=== PATIENT | female | born 1945 | race Caucasian/White ===

== ENCOUNTER 2020-09-28 09:16 | Outpatient (REF) | payer MEDICARE, SELFPAY ==
--- NOTE | ~2020-09-28 | XR_ITS ---
EXAMINATION: XR PELVIS / LEFT HIP: 3 VIEWS XR BILATERAL KNEES: STANDING AP XR LEFT KNEE: 2 VIEWS CLINICAL INFORMATION: Pain COMPARISON: None XR/XR pelvis 1-2V FINDINGS/IMPRESSION: Pelvis/left hip: No acute fracture or dislocation. Pelvic ring intact. Bilateral total hip arthroplasties in place with single acetabular augmentation screws present. No periprosthetic lucency to suggest loosening, infection or particle disease. Femoral head prostheses are concentrically seated within there respective acetabular cup. Mild bilateral sacroiliac arthrosis. Chain sutures present within the pelvis. Knees: Right total knee arthroplasty. Tibial component is cemented. Components in expected positions. Tricompartmental marginal osteophytes of the left knee, most pronounced along the medial lateral tibiofemoral compartments. Chondrocalcinosis. Trace joint effusion.
--- NOTE | ~2020-09-28 | XR_ITS ---
EXAMINATION: XR PELVIS / LEFT HIP: 3 VIEWS XR BILATERAL KNEES: STANDING AP XR LEFT KNEE: 2 VIEWS CLINICAL INFORMATION: Pain COMPARISON: None XR/XR knee LT 2V FINDINGS/IMPRESSION: Pelvis/left hip: No acute fracture or dislocation. Pelvic ring intact. Bilateral total hip arthroplasties in place with single acetabular augmentation screws present. No periprosthetic lucency to suggest loosening, infection or particle disease. Femoral head prostheses are concentrically seated within there respective acetabular cup. Mild bilateral sacroiliac arthrosis. Chain sutures present within the pelvis. Knees: Right total knee arthroplasty. Tibial component is cemented. Components in expected positions. Tricompartmental marginal osteophytes of the left knee, most pronounced along the medial lateral tibiofemoral compartments. Chondrocalcinosis. Trace joint effusion.
--- NOTE | ~2020-09-28 | XR_ITS ---
EXAMINATION: XR PELVIS / LEFT HIP: 3 VIEWS XR BILATERAL KNEES: STANDING AP XR LEFT KNEE: 2 VIEWS CLINICAL INFORMATION: Pain COMPARISON: None XR/XR knee standing BI FINDINGS/IMPRESSION: Pelvis/left hip: No acute fracture or dislocation. Pelvic ring intact. Bilateral total hip arthroplasties in place with single acetabular augmentation screws present. No periprosthetic lucency to suggest loosening, infection or particle disease. Femoral head prostheses are concentrically seated within there respective acetabular cup. Mild bilateral sacroiliac arthrosis. Chain sutures present within the pelvis. Knees: Right total knee arthroplasty. Tibial component is cemented. Components in expected positions. Tricompartmental marginal osteophytes of the left knee, most pronounced along the medial lateral tibiofemoral compartments. Chondrocalcinosis. Trace joint effusion.
--- NOTE | ~2020-09-28 | XR_ITS ---
EXAMINATION: XR PELVIS / LEFT HIP: 3 VIEWS XR BILATERAL KNEES: STANDING AP XR LEFT KNEE: 2 VIEWS CLINICAL INFORMATION: Pain COMPARISON: None XR/XR hip LT 1V FINDINGS/IMPRESSION: Pelvis/left hip: No acute fracture or dislocation. Pelvic ring intact. Bilateral total hip arthroplasties in place with single acetabular augmentation screws present. No periprosthetic lucency to suggest loosening, infection or particle disease. Femoral head prostheses are concentrically seated within there respective acetabular cup. Mild bilateral sacroiliac arthrosis. Chain sutures present within the pelvis. Knees: Right total knee arthroplasty. Tibial component is cemented. Components in expected positions. Tricompartmental marginal osteophytes of the left knee, most pronounced along the medial lateral tibiofemoral compartments. Chondrocalcinosis. Trace joint effusion.
== END 2020-09-28 09:17 | disposition home or self-care (01) ==
LOC: HO.HOSX 09:16
PROVIDERS: Visit Provider Orthopaedic Surgery
DX: M25.552 Pain in left hip (principal); M17.12 Unilateral primary osteoarthritis, left knee; S76.112A Strain of left quadriceps muscle, fascia and tendon, initial encounter
CPT/HCPCS: 72170; 73501; 73503; 73560; 73562; 73565; 99202

== ENCOUNTER → 2020-11-30 11:06 | Outpatient (BNVA) | payer MEDICARE, SELFPAY | PROVIDERS: PCP Internal Medicine; Visit Provider Orthopaedic Surgery | DX: Z01.812 Encounter for preprocedural laboratory examination (principal); Z01.810 Encounter for preprocedural cardiovascular examination | CPT/HCPCS: 93005 ==

== ENCOUNTER 2020-12-11 11:05 | Outpatient (REF) | payer MEDICARE, SELFPAY ==
--- NOTE | ~2020-12-11 | XR_ITS ---
EXAMINATION: XR SHOULDER, RIGHT CLINICAL INFORMATION: Pain COMPARISON: None TECHNIQUE: 2 views of the right shoulder. FINDINGS: No fracture or dislocation is seen. There is severe arthritis at the glenohumeral joint with joint space narrowing, small osteophyte and increased sclerosis. There is mild arthritis at the acromioclavicular joint. There is soft tissue calcification superior to the greater tuberosity. XR/XR shoulder RT min 2V IMPRESSION: Arthritis, severe at the glenohumeral joint.
--- NOTE | ~2020-12-11 | XR_ITS ---
EXAMINATION: PELVIS AND LEFT HIP X-RAY CLINICAL INFORMATION: Pain COMPARISON: Previous exam September 2020 TECHNIQUE: One view of the pelvis and 2 views of the left hip FINDINGS: There are bilateral hip replacement in satisfactory position. No fracture, dislocation or x-ray evidence of loosening is seen. Bones of the pelvis are unremarkable. There are degenerative changes of the lower lumbar spine. There is evidence of atherosclerotic disease. There are surgical raul in the pelvis. XR/XR pelvis 1-2V IMPRESSION: Satisfactory appearance of bilateral hip replacements.
--- NOTE | ~2020-12-11 | XR_ITS ---
EXAMINATION: PELVIS AND LEFT HIP X-RAY CLINICAL INFORMATION: Pain COMPARISON: Previous exam September 2020 TECHNIQUE: One view of the pelvis and 2 views of the left hip FINDINGS: There are bilateral hip replacement in satisfactory position. No fracture, dislocation or x-ray evidence of loosening is seen. Bones of the pelvis are unremarkable. There are degenerative changes of the lower lumbar spine. There is evidence of atherosclerotic disease. There are surgical raul in the pelvis. XR/XR hip LT min 2V IMPRESSION: Satisfactory appearance of bilateral hip replacements.
== END 2020-12-11 11:06 | disposition home or self-care (01) ==
LOC: HO.HOSX 11:05
PROVIDERS: PCP Internal Medicine; Visit Provider Physician Assistant
DX: M25.552 Pain in left hip (principal); M19.011 Primary osteoarthritis, right shoulder; Z96.643 Presence of artificial hip joint, bilateral
CPT/HCPCS: 20610; 72170; 73030; 73502; 99212; J1100

== ENCOUNTER → 2021-01-01 09:46 | Outpatient (REF) | payer MEDICARE, SELFPAY ==
--- NOTE | ~2021-01-01 | NM_ITS ---
EXAMINATION: THREE PHASE BONE SCAN CLINICAL INFORMATION: Status post left hip replacement 2013, right hip replacement 2009, right knee replacement 2019. Pain left thigh area.. COMPARISON: No previous bone scan is available for comparison. Radiographs of the pelvis, left hip and right shoulder dated 12/11/2020 are available for comparison.. TECHNIQUE: Initial rapid sequence images were obtained over the at and proximal thighs in the anterior and posterior projections during the bolus injection of 20 mCi Tc-99m MDP. Static images of the whole-body with multiple views of the knees, hips and pelvis were then obtained 3 hours post injection. FINDINGS: Initial rapid sequence images show bilaterally symmetrical flow to the hips and proximal thighs with no foci of abnormally increased flow at any site. Blood pool images obtained immediately following the flow study show subtle photopenic defects from bilateral total hip prosthesis but no abnormal blood pool activity avidity is present at any visualized site. The delayed static images of the whole body show: In the head, no significant abnormalities are present. In the thoracic cage and upper extremities, there is mildly increased activity in the right shoulder, most prominently in the glenohumeral articulation. There is minimally increased activity in the sternoclavicular joints bilaterally. In the spine, a mild thoracolumbar scoliosis is present with lumbar convexity to the left. There is minimal heterogeneity in the spine but no prominent foci of abnormally increased activity are present at any site. There is minimally increased activity in the left lateral aspect of the lower cervical spine, likely due to facet arthropathy. In the pelvis, no significant abnormalities are present. In the lower extremities, photopenic defects from bilateral total hip and a right knee prosthesis are noted. There is moderately increased activity adjacent to the distal half of both femoral stems, and this extends more distally on the left. The activity is more intense in the anterior cortex adjacent to the femoral stem with some abnormal activity appears to surround the mid to distal aspects of both femoral stems. There is no abnormal activity adjacent to the proximal aspect of either prostheses other than very minimally increased activity in the greater femoral trochanters bilaterally likely due to an enthesopathy. There is no abnormal activity adjacent to the right knee prosthesis. There is a mild diffuse increase in activity in the left knee slightly more prominently in the patella. There is mildly increased activity in both ankles and a mild diffuse increase in activity is present in the tarsal bones diffusely in both feet. Radiograph of the pelvis and hips dated 12/11/2020 show bilateral total hip prosthesis with femoral stems of equal length. There is some cortical thickening adjacent to the mid right femoral stem that corresponds well to the region of increased activity described above on this bone scan. Some cortical thickening is probably present on the left but this is slightly less prominent than on the right, but also appears to correspond to the region of increased activity on this bone scan. NM/NM bone 3 phase IMPRESSION: 1. There is somewhat prominent activity adjacent to the femoral stem of both total hip prosthesis, and while this may represent ongoing bony remodeling prosthetic loosening is suspected. The pattern is unusual in that there is usually significantly increased activity at the distal tip of the femoral stem or in significant loosening is present and it is possible that this increased activity bilaterally is due to ongoing normal bony remodeling adjacent to the femoral stems. Although infection cannot be entirely ruled out, the absence of any significant increased flow or blood pool activity is evidence against active infection. 2. A well-healed right total knee prosthesis is noted with no abnormalities present to suggest prosthetic loosening, infection, or adjacent fracture. 3. A few additional mild nonspecific abnormalities are noted as described above and these are all likely arthritic or traumatic in etiology. The most severe of these is in the glenohumeral articulation of the right shoulder. None of these abnormalities is strongly suspicious for metastatic disease..
== END ==
LOC: HO.NUCMED 09:46
PROVIDERS: PCP Internal Medicine; Visit Provider Physician Assistant
DX: M79.652 Pain in left thigh (principal); Z96.643 Presence of artificial hip joint, bilateral; Z96.651 Presence of right artificial knee joint
CPT/HCPCS: 78315; A9503

== ENCOUNTER → 2021-01-22 13:12 | Outpatient (BNVA) | payer MEDICARE, SELFPAY | PROVIDERS: PCP Internal Medicine; Visit Provider Orthopaedic Surgery | DX: M25.559 Pain in unspecified hip (principal); Z96.649 Presence of unspecified artificial hip joint | CPT/HCPCS: 99212 ==

== ENCOUNTER 2021-03-26 10:31 | Outpatient (REF) | payer MEDICARE, SELFPAY ==
--- NOTE | ~2021-03-26 | XR_ITS ---
EXAMINATION: XR PELVIS XR HIP, LEFT CLINICAL INFORMATION: Pelvis and left hip radiograph from 12/11/2020 COMPARISON: None TECHNIQUE: 2 views of the pelvis and one view of the left hip FINDINGS: No acute visible fracture or dislocation. Status post bilateral hip arthroplasty. Orthopedic hardware is grossly intact. Degenerative changes of the lower lumbar spine and lumbosacral spine. Degenerative changes along the pubic symphysis. Surgical material noted in the lower abdomen and pelvis. Joint spaces and alignment are otherwise maintained. Soft tissues are unremarkable. Pelvic phleboliths are noted. Atherosclerotic calcifications are visualized. XR/XR pelvis 1-2V IMPRESSION: 1. No fracture or dislocation. 2. Status post bilateral hip arthroplasty with intact orthopedic hardware.
--- NOTE | ~2021-03-26 | XR_ITS ---
EXAMINATION: XR PELVIS XR HIP, LEFT CLINICAL INFORMATION: Pelvis and left hip radiograph from 12/11/2020 COMPARISON: None TECHNIQUE: 2 views of the pelvis and one view of the left hip FINDINGS: No acute visible fracture or dislocation. Status post bilateral hip arthroplasty. Orthopedic hardware is grossly intact. Degenerative changes of the lower lumbar spine and lumbosacral spine. Degenerative changes along the pubic symphysis. Surgical material noted in the lower abdomen and pelvis. Joint spaces and alignment are otherwise maintained. Soft tissues are unremarkable. Pelvic phleboliths are noted. Atherosclerotic calcifications are visualized. XR/XR hip LT 1V IMPRESSION: 1. No fracture or dislocation. 2. Status post bilateral hip arthroplasty with intact orthopedic hardware.
== END 2021-03-26 10:32 | disposition home or self-care (01) ==
LOC: HO.HOSX 10:31
PROVIDERS: PCP Internal Medicine; Visit Provider Orthopaedic Surgery
DX: M25.552 Pain in left hip (principal); M79.652 Pain in left thigh; M19.011 Primary osteoarthritis, right shoulder; I10 Essential (primary) hypertension; E78.00 Pure hypercholesterolemia, unspecified; E03.9 Hypothyroidism, unspecified; Z96.643 Presence of artificial hip joint, bilateral; Z88.8 Allergy status to other drugs, medicaments and biological substances
CPT/HCPCS: 72170; 73501; 99212

== ENCOUNTER 2021-04-02 10:41 | Outpatient (REF) | payer MEDICARE, SELFPAY ==
[2021-04-02 12:24] LABS: C Reactive Protein 0.06 mg/dL (< or = 0.50)
[2021-04-02 12:27] LABS: Erythrocyte Sedimentation Rate 8 MM/HR (0-20)
== END 2021-04-02 10:42 | disposition home or self-care (01) ==
LOC: HO.LAB 10:41
PROVIDERS: PCP Internal Medicine; Visit Provider Orthopaedic Surgery
DX: M25.559 Pain in unspecified hip (principal); Z96.649 Presence of unspecified artificial hip joint
CPT/HCPCS: 36415; 85652; 86140

== ENCOUNTER → 2021-04-20 10:34 | Outpatient (BNVA) | payer MEDICARE, SELFPAY | PROVIDERS: PCP Internal Medicine; Visit Provider Orthopaedic Surgery | DX: M81.0 Age-related osteoporosis without current pathological fracture (principal); M17.12 Unilateral primary osteoarthritis, left knee; M19.011 Primary osteoarthritis, right shoulder | CPT/HCPCS: 20610; 99212; J1100 ==

== ENCOUNTER → 2021-07-19 11:20 | Outpatient (BNVA) | payer MEDICARE, SELFPAY | PROVIDERS: PCP Internal Medicine; Visit Provider Orthopaedic Surgery | DX: M19.011 Primary osteoarthritis, right shoulder (principal); M17.12 Unilateral primary osteoarthritis, left knee; M75.41 Impingement syndrome of right shoulder; M25.559 Pain in unspecified hip; Z96.649 Presence of unspecified artificial hip joint | CPT/HCPCS: 20610; 99212; J1100 ==

== ENCOUNTER → 2021-10-19 11:00 | Outpatient (BNVA) | payer MEDICARE, SELFPAY | PROVIDERS: PCP Internal Medicine; Visit Provider Orthopaedic Surgery | DX: M19.011 Primary osteoarthritis, right shoulder (principal); M17.12 Unilateral primary osteoarthritis, left knee; Z96.649 Presence of unspecified artificial hip joint | CPT/HCPCS: 99212 ==

== ENCOUNTER → 2021-11-29 10:44 | Outpatient (BNVA) | payer MEDICARE, OTHER, MEDICAID, SELFPAY | PROVIDERS: PCP Internal Medicine; Visit Provider Orthopaedic Surgery | DX: M19.011 Primary osteoarthritis, right shoulder (principal); M17.12 Unilateral primary osteoarthritis, left knee | CPT/HCPCS: 20610; 99212; J1100 ==

== ENCOUNTER → 2022-03-07 08:46 | Outpatient (BNVA) | payer MEDICARE, MEDICAID, SELFPAY | PROVIDERS: PCP Internal Medicine; Visit Provider Orthopaedic Surgery | DX: M17.12 Unilateral primary osteoarthritis, left knee (principal); M25.559 Pain in unspecified hip; Z96.649 Presence of unspecified artificial hip joint | CPT/HCPCS: 20610; 99212; J1100 ==

== ENCOUNTER → 2022-06-06 12:01 | Outpatient (BNVA) | payer MEDICARE, MEDICAID, SELFPAY | PROVIDERS: PCP Internal Medicine; Visit Provider Orthopaedic Surgery | DX: M19.011 Primary osteoarthritis, right shoulder (principal); M17.12 Unilateral primary osteoarthritis, left knee; M81.0 Age-related osteoporosis without current pathological fracture; Z96.643 Presence of artificial hip joint, bilateral; Z79.899 Other long term (current) drug therapy | CPT/HCPCS: 20610; 99212; J1100 ==

== ENCOUNTER → 2022-09-02 12:16 | Outpatient (BNVA) | payer MEDICARE, MEDICAID, SELFPAY | PROVIDERS: PCP Internal Medicine; Visit Provider Orthopaedic Surgery | DX: M19.011 Primary osteoarthritis, right shoulder (principal); M17.12 Unilateral primary osteoarthritis, left knee | CPT/HCPCS: 20610; 99212; J1100 ==

== ENCOUNTER 2022-12-02 11:56 | Outpatient (AMB) | payer MEDICARE, MEDICAID, SELFPAY ==
--- NOTE | 2022-12-02 12:03 | A.OFFVIS_ITS ---
Intake Vital Signs 12/02/22 12:15 Height 4 ft 10 in Weight 103 lb BMI 21.5 Intake Visit Reasons: OV- Left Knee OA - last inj 09/02/22 Intake Note: Cristal is a 77 year old right hand dominant female who presents today for a follow up of her left knee and right shoulder. Last injection in left knee done and right shoulder from 06/06/22. States shoulder lasted about 2 months and 1-2 weeks for her knees. States she would like to discuss repeat of injections today. Allergies ibuprofen [From Motrin] Allergy (Intermediate, Verified 12/02/22 12:11) Hives HPI OV- Left Knee OA - last inj 09/02/22 HPI Details Cristal is a 77 year old woman with left knee OA & right shoulder OA. She has a hx of good relief from steroid injections. Her knee and shoulder were both injected on 06/06/22, with good relief. She would like to repeat these injections today. She says her shoulder injection gave her relief for several months, but her knee injection helped only for ~2 weeks. She says she continues to have some pain in her leg and a newer pain in her hip, which she thinks is related. [facility] Medical History COVID-19 vaccine series completed Elevated cholesterol Hypertension Hypothyroid Surgical History H/O: hysterectomy S/P total knee replacement Status post total hip replacement, left Status post total hip replacement, right Social History Current occupational status: retired Current occupation: right handed Review of Systems Const All systems reviewed & are unremarkable except as noted in HPI and below Physical Exam Vital Signs: BMI result Body Mass Index 21.5 Const General: no acute distress, alert and awake Orientation/consciousness: patient oriented x3 HEENT Head: Yes normocephalic and Yes atraumatic Eyes EOM: EOMs intact bilaterally Resp Effort & Inspection: normal respiratory effort and able to speak in complete sentences Cardio Jugular venous distension: no JVD Skin General skin exam: turgor normal Rashes: no rashes Neuro General: patient oriented x3 Psych Appearance: grossly normal Affect: normal affect Attitude: cooperative Office Procedures Joint Injection/Drain Joint Injection/Drain Details: Injected 1 mL of Decadron and 3 mL 1% lidocaine and 3 mL of 0.25% Marcaine. Site was prepped using aseptic technique. Patient tolerated the procedure well. Primary Site: left knee Secondary Site: right shoulder Approach Used: anterolateral Coding 64912 - Large joint 32626 - Glenohumeral/Tronchanteric Bursa/Intraarticular Procedure code (CPT) selection complete Results Reviewed Results Reviewed: 12/02/22 12:07 Lidocaine HCl 2 % MPF [Xylocaine 2 % MPF] 5 ml .ROUTE .STK-MED ONE 12/02/22 12:08 BUPivacaine MPF 0.25 % [Sensorcaine-MPF 0.25% 10 ML] 10 ml .ROUTE .STK-MED ONE dexAMETHasone sod phosphate [Decadron] 4 mg .ROUTE .STK-MED ONE Assessment & Plan Assessment & Plan (1) Primary osteoarthritis of left knee: Code(s): M17.12 - Unilateral primary osteoarthritis, left knee Plan: This is a 77 year old woman with left knee OA. Her last injection was 08/2622 which offered good, but short-term, relief. She is able to ambulate long distances without discomfort and is comfortable managing her pain with Tylenol. I am hesitant to suggest a TKA given her symptoms. I injected her left knee today, which she tolerated well. She can follow up prn. (2) Degenerative arthritis of right shoulder region: Code(s): M19.011 - Primary osteoarthritis, right shoulder Plan: Right shoulder OA. Her last injection was 09/02/22 which offered her good relief. She has some pain with certain shoulder motions, which worsens at night. I injected her right shoulder today, which she tolerated well. Plan Scribed for Wilmer Whiting MD by Zach Alvarenga, electromedical equipment repairer, on 12/02/22 at 12:20 PM, EST. Coding Level of Care Code Est Pt Level 3 (80509) Diagnoses Primary osteoarthritis of left knee M17.12 Degenerative arthritis of right shoulder region M19.011 CPT Codes Coding - Large joint: 49327 - Large joint ([id number]) Coding - Joint 7: 38160 - Glenohumeral/Tronchanteric Bursa/Intraarticular ([id number])
[2022-12-02 12:15] VITALS: BMI 21.5
== END 2022-12-02 12:52 | disposition home or self-care (01) ==
PROVIDERS: PCP Internal Medicine; Visit Provider Orthopaedic Surgery
DX: M17.12 Unilateral primary osteoarthritis, left knee (principal); M19.011 Primary osteoarthritis, right shoulder
CPT/HCPCS: 20610; 99213

== ENCOUNTER → 2022-12-02 11:56 | Outpatient (BNVA) | payer MEDICARE, MEDICAID, SELFPAY | PROVIDERS: PCP Internal Medicine; Visit Provider Orthopaedic Surgery | DX: M17.12 Unilateral primary osteoarthritis, left knee (principal); M19.011 Primary osteoarthritis, right shoulder | CPT/HCPCS: 20610; 99212; J1100 ==

== ENCOUNTER 2023-02-28 12:09 | Outpatient (AMB) | payer MEDICARE, MEDICAID, SELFPAY ==
--- NOTE | 2023-02-28 12:11 | A.OFFVIS_ITS ---
Intake Intake Visit Reasons: OV- Left Knee OA - last inj 12/02/22. Intake Note: Cristal is a 78 year old female who presents today for a follow up of her left knee OA. Patient reports that this injection was helpful, she would like to have the left knee and left shoulder injected today Allergies ibuprofen [From Motrin] Allergy (Intermediate, Verified 12/02/22 12:11) Hives HPI OV- Left Knee OA - last inj 12/02/22. HPI Details Cristal comes in complaining of left knee and right shoulder pain. SHe has been getting injections which have helped her. She reports continued pain. [facility] Medical History COVID-19 vaccine series completed Elevated cholesterol Hypertension Hypothyroid Surgical History H/O: hysterectomy S/P total knee replacement Status post total hip replacement, left Status post total hip replacement, right Social History Current occupational status: retired Current occupation: right handed Physical Exam Extrem Other: Skin c/d/i No effusion left knee + H/N right shoudler Office Procedures Joint Injection/Drain Joint Injection/Drain Details: Injected 1 mL of Decadron and 3 mL 1% lidocaine and 3 mL of 0.25% Marcaine. Site was prepped using aseptic technique. Patient tolerated the procedure well. Primary Site: left shoulder Secondary Site: right knee Approach Used: other Coding - Large joint - Glenohumeral/Tronchanteric Bursa/Intraarticular Procedure code (CPT) selection complete Assessment & Plan Assessment & Plan (1) Internal impingement of right shoulder: Code(s): M75.41 - Impingement syndrome of right shoulder Plan: Injected right shoulder (2) Primary osteoarthritis of left knee: Code(s): M17.12 - Unilateral primary osteoarthritis, left knee Plan Injected left knee Coding Level of Care Code Est Pt Level 3 (82257) Diagnoses Internal impingement of right shoulder M75.41 Primary osteoarthritis of left knee M17.12 CPT Codes Coding - 99694 Large joint: 15878 - Large joint ([id number]) Coding - Joint 7: - Glenohumeral/Tronchanteric Bursa/Intraarticular ([id number])
== END 2023-02-28 12:39 | disposition home or self-care (01) ==
PROVIDERS: PCP Internal Medicine; Visit Provider Orthopaedic Surgery
DX: M75.41 Impingement syndrome of right shoulder (principal); M17.12 Unilateral primary osteoarthritis, left knee
CPT/HCPCS: 20610; 99213

== ENCOUNTER → 2023-02-28 12:09 | Outpatient (BNVA) | payer MEDICARE, MEDICAID, SELFPAY | PROVIDERS: PCP Internal Medicine; Visit Provider Orthopaedic Surgery | DX: M75.41 Impingement syndrome of right shoulder (principal); M17.12 Unilateral primary osteoarthritis, left knee | CPT/HCPCS: 20610; 99212; J0665; J1100 ==

== ENCOUNTER 2023-05-30 09:02 | Outpatient (AMB) | payer MEDICARE, MEDICAID, SELFPAY ==
[2023-05-30 09:18] VITALS: BMI 21.5
--- NOTE | 2023-05-30 09:18 | MHC.OFFVIS ---
Intake Vital Signs 05/30/23 09:18 Height 4 ft 10 in Weight 103 lb BMI 21.5 Intake Visit Reasons: OV-Left Knee OA - last inj 02/28/23 Intake Note: Cristal is a 78 year old female who presents today for a follow up of her left knee OA. Last injections were administered in the Right Shoulder and Left Knee 02/28/23. She explains that the last injections were helpful and she would like to repeat injections today Allergies ibuprofen [From Motrin] Allergy (Intermediate, Verified 12/02/22 12:11) Hives HPI OV-Left Knee OA - last inj 02/28/23 HPI Details Cristal is a 78 year old female who presents today for a follow up of her left knee OA. Last injections were administered in the Right Shoulder and Left Knee 02/28/23. She explains that the last injections were helpful and she would like to repeat injections today [facility] Medical History COVID-19 vaccine series completed Hypothyroid Elevated cholesterol Hypertension Surgical History S/P total knee replacement H/O: hysterectomy Status post total hip replacement, left Status post total hip replacement, right Social History Current occupational status: retired Current occupation: right handed Physical Exam Vital Signs: BMI result Body Mass Index 21.5 Extrem Other: Left knee medial and lateral joint line mild TTP Right shoulder with + Danielle and Neer but able to abduct comfortably. Office Procedures Joint Injection/Drain Joint Injection/Drain Details: Injected 1 mL of Decadron and 3 mL 1% lidocaine and 3 mL of 0.25% Marcaine. Site was prepped using aseptic technique. Patient tolerated the procedure well. Primary Site: right shoulder Secondary Site: left knee Approach Used: anterolateral Coding - Large joint - Glenohumeral/Tronchanteric Bursa/Intraarticular Procedure code (CPT) selection complete Assessment & Plan Assessment & Plan (1) Internal impingement of right shoulder: Code(s): M75.41 - Impingement syndrome of right shoulder Plan: Right shoulder injected today. (2) Primary osteoarthritis of left knee: Code(s): M17.12 - Unilateral primary osteoarthritis, left knee Plan: Left knee injected today Coding Level of Care Code Est Pt Level 3 (64129) Diagnoses Internal impingement of right shoulder M75.41 Primary osteoarthritis of left knee M17.12 CPT Codes Coding - 25845 Large joint: 96449 - Large joint ([id number]) Coding - Joint 7: 52878 - Glenohumeral/Tronchanteric Bursa/Intraarticular ([id number])
== END 2023-05-30 09:38 | disposition home or self-care (01) ==
PROVIDERS: PCP Internal Medicine; Visit Provider Orthopaedic Surgery
DX: M75.41 Impingement syndrome of right shoulder (principal); M17.12 Unilateral primary osteoarthritis, left knee
CPT/HCPCS: 20610; 99213

== ENCOUNTER → 2023-05-30 09:02 | Outpatient (BNVA) | payer MEDICARE, OTHER, SELFPAY | PROVIDERS: PCP Internal Medicine; Visit Provider Orthopaedic Surgery | DX: M17.12 Unilateral primary osteoarthritis, left knee (principal); M75.41 Impingement syndrome of right shoulder | CPT/HCPCS: 20610; 99212; J0665; J1100 ==

== ENCOUNTER 2023-09-01 12:51 | Outpatient (AMB) | payer MEDICARE, MEDICAID, SELFPAY ==
[2023-09-01 12:56] VITALS: BMI 20.9
--- NOTE | 2023-09-01 12:56 | A.OFFVIS_ITS ---
Vital Signs 09/01/23 12:56 Height 4 ft 10 in Weight 100 lb BMI 20.9 Intake Visit Reasons: OV-Left Knee OA - last inj 05/30/23 Intake Note: Cristal, 78 yr old female, presents today to get injections in the LT knee and the RT shoulder. Allergies ibuprofen [From Motrin] Allergy (Intermediate, Verified 09/01/23 12:57) Hives HPI HPI OV-Left Knee OA - last inj 05/30/23: Details: Cristal, 78 yr old female, presents today to get injections in the LT knee and the RT shoulder. She has been here with these complints in the past. Her left knee, she states, is better than it has been but still painful. Her left thigh pain also ocntinues to bother her. She has right shoulder pain with overhead activity. Injections have helped her in the past. [facility] Medical History COVID-19 vaccine series completed Hypothyroid Elevated cholesterol Hypertension Surgical History S/P total knee replacement H/O: hysterectomy Status post total hip replacement, left Status post total hip replacement, right Social History Current occupational status: retired Current occupation: right handed Physical Exam Vital Signs: BMI result Body Mass Index 20.9 Extrem Other: Left knee medial and lateral joint line mild TTP Right shoulder with + Danielle and Neer but able to abduct comfortably. Office Procedures Joint Injection/Drain Joint Injection/Drain Details: Injected 1 mL of Decadron and 3 mL 1% lidocaine and 3 mL of 0.25% Marcaine. Site was prepped using aseptic technique. Patient tolerated the procedure well. Primary Site: right shoulder Secondary Site: left knee Coding - Large joint 56916 - Glenohumeral/Tronchanteric Bursa/Intraarticular Procedure code (CPT) selection complete Assessment & Plan Assessment & Plan (1) Primary osteoarthritis of left knee: Code(s): M17.12 - Unilateral primary osteoarthritis, left knee Category: Medical Plan: I injected her left knee today. She states he is helpful. Her left knee does bother her but she states it is tolerable. Primary lower extremity complaint is her left thigh pain. I do not feel confident that this would improve with arthroplasty. She can follow up as needed for her left knee. (2) Degenerative arthritis of right shoulder region: Code(s): M19.011 - Primary osteoarthritis, right shoulder Category: Medical Plan: Cristal has right shoulder osteoarthritis but subacromial injections seemed to help her. I injected her subacromial space. If that has not sufficiently helpful she can return to see me but she has good motion and it seems that when she over uses her right shoulder it bothers her more. Coding Level of Care Code Est Pt Level 3 (72792) Diagnoses Primary osteoarthritis of left knee M17.12 Degenerative arthritis of right shoulder region M19.011 CPT Codes Coding - 97186 Large joint: 82507 - Large joint ([id number]) Coding - Joint 7: 71549 - Glenohumeral/Tronchanteric Bursa/Intraarticular ([id number])
== END 2023-09-01 13:45 | disposition home or self-care (01) ==
LOC: HO.HOS 12:51
PROVIDERS: PCP Internal Medicine; Visit Provider Orthopaedic Surgery
DX: M17.12 Unilateral primary osteoarthritis, left knee (principal); M19.011 Primary osteoarthritis, right shoulder
CPT/HCPCS: 20610; 99213

== ENCOUNTER → 2023-09-01 12:51 | Outpatient (BNVA) | payer MEDICARE, MEDICAID, SELFPAY | PROVIDERS: PCP Internal Medicine; Visit Provider Orthopaedic Surgery | DX: M17.12 Unilateral primary osteoarthritis, left knee (principal); M19.011 Primary osteoarthritis, right shoulder | CPT/HCPCS: 20610; 99212; J0665; J1100 ==

== ENCOUNTER 2023-12-04 09:49 | Outpatient (AMB) | payer MEDICARE, MEDICAID, SELFPAY ==
--- NOTE | 2023-12-04 09:53 | A.OFFVIS_ITS ---
Vital Signs 12/04/23 09:59 Height 4 ft 10 in Weight 100 lb BMI 20.9 Intake Visit Reasons: Inj-LT knee and the RT shoulder-last inj. 09/01/23 Intake Note: Cristal is a 78 year old female who presents today for a follow up of her Left Knee and Right Shoulder OA. She was last seen on 09/01/23 where the left shoulder an right shoulder were injected. Patient reports that the last injection was helpful for the left knee but the right shoulder was only helpful for about 2 weeks Allergies ibuprofen [From Motrin] Allergy (Intermediate, Verified 09/01/23 12:57) Hives HPI HPI Inj-LT knee and the RT shoulder-last inj. 09/01/23: Details: Cristal is a 78 year old female who presents today for a follow up of her Left Knee and Right Shoulder OA. She was last seen on 09/01/23 where the left shoulder an right shoulder were injected. Patient reports that the last injection was helpful for the left knee but the right shoulder was only helpful for about 3 weeks. She states she has difficult time bathing and often has to stop her house cleaning activities because of pain. Her knee has been more tolerable as of late. [facility] Medical History COVID-19 vaccine series completed Hypothyroid Elevated cholesterol Hypertension Surgical History S/P total knee replacement H/O: hysterectomy Status post total hip replacement, left Status post total hip replacement, right Social History Current occupational status: retired Current occupation: right handed Physical Exam Vital Signs: BMI result Body Mass Index 20.9 Extrem Other: Left knee medial and lateral joint line mild TTP Right shoulder with + Danielle and Neer but able to abduct comfortably. Office Procedures Joint Injection/Aspiration Joint Injection/Aspiration Details: Injected 1 mL of Decadron and 3 mL 1% lidocaine and 3 mL of 0.25% Marcaine. Site was prepped using aseptic technique. Patient tolerated the procedure well. Primary Site: right shoulder Secondary Site: left knee Coding - Large joint - Glenohumeral/Tronchanteric Bursa/Intraarticular Procedure code (CPT) selection complete Assessment & Plan Assessment & Plan (1) Degenerative arthritis of right shoulder region: Code(s): M19.011 - Primary osteoarthritis, right shoulder Category: Medical Plan: This is a 78-year-old woman with osteoarthritis of the right shoulder. She is very active and healthy and I injected her right shoulder. We discussed activity modification which she may or may not do as she is pretty intent upon her daily activities. (2) Primary osteoarthritis of left knee: Code(s): M17.12 - Unilateral primary osteoarthritis, left knee Category: Medical Plan: I injected her left knee today. Her left knee is actually doing well. She has wanted surgery in the past but we are trying to avoid that. Coding Level of Care Code Est Pt Level 3 (89529) Complex EM visit Add On G2211 Diagnoses Degenerative arthritis of right shoulder region M19.011 Primary osteoarthritis of left knee M17.12 CPT Codes Coding - 54477 Large joint: 43222 - Large joint ([id number]) Coding - Joint 7: 03613 - Glenohumeral/Tronchanteric Bursa/Intraarticular ([id number])
[2023-12-04 09:59] VITALS: BMI 20.9
== END 2023-12-04 10:20 | disposition home or self-care (01) ==
PROVIDERS: PCP Internal Medicine; Visit Provider Orthopaedic Surgery
DX: M19.011 Primary osteoarthritis, right shoulder (principal); M17.12 Unilateral primary osteoarthritis, left knee
CPT/HCPCS: 20610; 99213

== ENCOUNTER → 2023-12-04 09:49 | Outpatient (BNVA) | payer MEDICARE, MEDICAID, SELFPAY | PROVIDERS: PCP Internal Medicine; Visit Provider Orthopaedic Surgery | DX: M17.12 Unilateral primary osteoarthritis, left knee (principal); M19.011 Primary osteoarthritis, right shoulder | CPT/HCPCS: 20610; 99212; J0665; J1100 ==

== ENCOUNTER 2024-03-15 13:13 | Outpatient (AMB) | payer MEDICARE, MEDICAID, SELFPAY ==
--- NOTE | 2024-03-15 13:16 | A.OFFVIS_ITS ---
Intake Visit Reasons: Inj-LT knee and the RT shoulder-last inj. 12/04/23 Intake Note: Cristal is an 79 year old female who presents today for an injection for the Left Knee and the Right shoulder. Patient reports that she received injections on 12/04/23 on the left knee and right shoulder which were helpful for about 2.5 months and she would like to repeat injections today. Allergies ibuprofen [From Motrin] Allergy (Intermediate, Verified 09/01/23 12:57) Hives HPI HPI Inj-LT knee and the RT shoulder-last inj. 12/04/23: Details: Cristal is an 79 year old female who presents today for an injection for the Left Knee and the Right shoulder. Patient reports that she received injections on 12/04/23 on the left knee and right shoulder which were helpful for about 2.5 months and she would like to repeat injections today. [facility] Medical History COVID-19 vaccine series completed Hypothyroid Elevated cholesterol Hypertension Surgical History S/P total knee replacement H/O: hysterectomy Status post total hip replacement, left Status post total hip replacement, right Social History Current occupational status: retired Current occupation: right handed Physical Exam Extrem Other: Left knee medial and lateral joint line mild TTP Right shoulder with + Danielle and Neer but able to abduct comfortably. Office Procedures Joint Inj/Aspir; Non-Pain Clin Joint Injection/Drain Details: Injected 1 mL of Decadron and 3 mL 1% lidocaine and 3 mL of 0.25% Marcaine. Site was prepped using aseptic technique. Patient tolerated the procedure well. Shoulders, Hips, Knees, Shoulder Injection Large joint : Right Shoulder Knee Large Joint Injection 42626: Left Knee Coding Procedure code (CPT) selection complete Assessment & Plan Assessment & Plan (1) Internal impingement of right shoulder: Code(s): M75.41 - Impingement syndrome of right shoulder Category: Medical Plan: Repeat injection. (2) Primary osteoarthritis of left knee: Code(s): M17.12 - Unilateral primary osteoarthritis, left knee Category: Medical Plan: Repeat injection. Coding Level of Care Code Est Pt Level 3 (30544) Diagnoses Internal impingement of right shoulder M75.41 Primary osteoarthritis of left knee M17.12 CPT Codes Shoulders, Hips, Knees, - Shoulder Injection Large joint : Right Shoulder ([id number]) Shoulders, Hips, Knees, - Knee Large Joint Injection : Left Knee ([id number])
== END 2024-03-15 13:55 | disposition home or self-care (01) ==
PROVIDERS: PCP Internal Medicine; Visit Provider Orthopaedic Surgery
DX: M75.41 Impingement syndrome of right shoulder (principal); M17.12 Unilateral primary osteoarthritis, left knee
CPT/HCPCS: 20610; 99213

== ENCOUNTER 2024-06-14 11:59 | Outpatient (AMB) | payer MEDICARE, MEDICAID, SELFPAY ==
--- NOTE | 2024-06-14 12:06 | A.OFFVIS_ITS ---
Intake Visit Reasons: INJ LT knee and the RT shoulder-last inj 03/15/24 Intake Note: Cristal is an 79 year old female who presents today for an injection for the Left Knee and the Right shoulder. Patient reports that she received injections on 03/15/24 which were helpful and she would like to repeat them today Allergies ibuprofen [From Motrin] Allergy (Intermediate, Verified 09/01/23 12:57) Hives HPI HPI INJ LT knee and the RT shoulder-last inj 03/15/24: Details: And/or is 79-year-old woman who gets injections into her left knee and her right shoulder semi periodically. She states these are helpful for her. Her right shoulder bothers her at night in her left knee continues to bother her intermittently but mostly with activity. [facility] Medical History COVID-19 vaccine series completed Hypothyroid Elevated cholesterol Hypertension Surgical History S/P total knee replacement H/O: hysterectomy Status post total hip replacement, left Status post total hip replacement, right Social History Current occupational status: retired Current occupation: right handed Physical Exam Extrem Other: Left knee medial and lateral joint line mild TTP Right shoulder with + Danielle and Neer but able to abduct comfortably. Office Procedures Joint Inj/Aspir; Non-Pain Clin Joint Injection/Drain Details: Injected 1 mL of Decadron and 3 mL 1% lidocaine and 3 mL of 0.25% Marcaine. Site was prepped using aseptic technique. Patient tolerated the procedure well. Shoulders, Hips, Knees, Shoulder Injection Large joint : Right Shoulder Knee Large Joint Injection 72661: Left Knee Coding Procedure code (CPT) selection complete Assessment & Plan Assessment & Plan (1) Internal impingement of right shoulder: Code(s): M75.41 - Impingement syndrome of right shoulder Category: Medical Plan: I injected her right shoulder. Continue to maintain proper shoulder mechanics and continue activity as tolerated. (2) Primary osteoarthritis of left knee: Code(s): M17.12 - Unilateral primary osteoarthritis, left knee Category: Medical Plan: I injected her left knee. Continue range of motion and activity as tolerated. Coding Level of Care Code Est Pt Level 3 (91000) Complex EM visit Add On G2211 Diagnoses Internal impingement of right shoulder M75.41 Primary osteoarthritis of left knee M17.12 CPT Codes Shoulders, Hips, Knees, - Shoulder Injection Large joint 31794: Right Shoulder ([id number]) Shoulders, Hips, Knees, - Knee Large Joint Injection : Left Knee ([id number])
--- OUTSIDE RECORDS SUMMARY | 2024-06-14 14:27 | XMS_ITS | Referral Summary ---
Author Organization [facility] Address [address] [place] [address] Care Team Providers Care Covering Machine Tender Name Role Phone Hay Noguera Primary Care Provider [phone] Allergies Active Allergy Reactions Criticality Noted Date Comments Nsaids (Non-Steroidal Anti-I nflammatory Drug) Hives 02/27/2010 Medications acetaminophen (TYLENOL) 325 mg tablet Take 650 mg by mouth 4 times a day. Active amLODIPine (NORVASC) 10 mg tablet 02/05/2021 Active clotrimazole-bet amethasone (LOTRISONE) cream 07/05/2020 Active levothyroxine (SYNTHROID, LEVOTHROID) 75 mcg tablet 02/15/2021 Active lovastatin (MEVACOR) 20 mg tablet 02/11/2021 Active Social History Tobacco Use Types Packs/Day Years Used Date Smoking Tobacco: Never Smokeless Tobacco: Never Alcohol Use Standard Drinks/Week Comments Not Currently 0 (1 standard drink = 0.6 oz pure alcohol) occ. glass of wine with dinner Comments Unknown Sex and Gender Information Value Date Recorded Sex Assigned at Not on file Legal Sex Female 12:27 PM EST Gender Identity Not on file Sexual Orientation Not on file Last Filed Vital Signs Vital Sign Reading Time Taken Comments Blood Pressure 151/81 04/03/2021 1:31 PM EST Pulse 103 04/03/2021 1:31 PM EST Temperature - - Respiratory Rate - - Oxygen Saturation - - Inhaled Oxygen Concentration - - Weight 48.1 kg (106 lb) 04/03/2021 1:31 PM EST Height 121.9 cm (4') 04/03/2021 1:31 PM EST Body Mass Index 32.35 04/03/2021 1:31 PM EST Plan of Treatment Not on file Insurance [facility] [facility] Care Teams Covering Machine Tender Relationship Specialty Start Date End Date Hay Noguera PCP - General Internal Medicine 03/29/21
--- OUTSIDE RECORDS SUMMARY | 2024-06-14 14:27 | XMS_ITS ---
Author Name [facility] Organization Unknown Care Team Organization Name Specialty Phone Email Start Date End [facility]
--- OUTSIDE RECORDS SUMMARY | 2024-06-14 14:27 | XMS_ITS | Clinical Summary ---
Author Organization [facility] Address [address] [place] [address] Care Team Providers Care [address] Justice Name Role Phone Unavailable Primary Care Provider Unavailabl e Social History Tobacco Use Types Packs/Day Years Used Date Smoking Tobacco: Never Assessed Sex and Gender Information Value Date Recorded Sex Assigned at Not on file Gender Identity Not on file Sexual Orientation Not on file Plan of Treatment Health Maintenance Due Date Last Done Comments DTaP/Tdap/Td Vaccines (1 - Tdap) 01/14/1963 Pneumococcal Vaccines 50+ (1 of 1 - PCV) 01/14/1994 Zoster (Shingles) Vaccine (1 of 2) 01/14/1994 RSV Vaccine 60 years and old er and Patients (1 - 1-dose 75+ series) 01/14/2019 COVID-19 Vaccine (2023-2 5 season) 2023 Hepatitis B Vaccines Aged Out No long er eligible based on patient's age to complete this topic
--- OUTSIDE RECORDS SUMMARY | 2024-06-14 14:27 | XMS_ITS | Clinical Summary ---
Author Organization [facility] Address [address] [place] [address] Phone Care Team Providers Care Crowd Controller Name Role Phone Hay Noguera MD Primary Care Provider [phone] Allergies Active Allergy Reactions Criticality Noted Date Comments Ibuprofen 04/07/2023 Naproxen Sodium 04/07/2023 Other Hives 02/27/2010 Motrin Medications acetaminophen (TYLENOL) 325 mg tablet Take 650 mg by mouth every 6 hours as needed. Active alendronate (FOSAMAX) 70 mg tablet TAKE 1 TABLET BY MOUTH EVERY WEEK,X84 DAYS 01/14/20 23 Active clotrimazole- betamethasone (LOTRISONE) 1-0.05 % cream Apply 1 Application topically 2 (two) times a day. 07/06/19 21 Active cholecalcifer ol (VITAMIN D-3) 25 mcg (1,000 unit) tablet Take 1 tablet (1,000 Units total) by mouth 1 (one) time each day. 10/14/19 24 Active losartan (Cozaar) 50 mg tablet Take 1 tablet (50 mg total) by mouth 1 (one) time each day. 90 each 1 04/15/19 25 025 Active levothyroxine (SYNTHROID, LEVOTHROID) 75 mcg tablet TAKE 1 TABLET BY MOUTH Friday through Friday, Skip Sundays 78 tablet 1 06/01/19 25 Active lovastatin (MEVACOR) 20 mg tablet Take 1 tablet (20 mg total) by mouth at bedtime. 90 tablet 1 04/01/20 25 Active lovastatin (MEVACOR) 20 mg tablet Take 1 Tablet by mouth at bedtime. 10/14/19 24 025 Discontinued(Re order) levothyroxine (SYNTHROID, LEVOTHROID) 75 mcg tablet TAKE 1 TABLET BY MOUTH Friday through Friday, no dose on Friday 90 tablet 03/04/20 24 025 Discontinued amLODIPine (NORVASC) 10 mg tablet Take 1 tablet (10 mg total) by mouth 1 (one) time each day. 02/06/20 21 025 Discontinued(Di scontinued by another clinician) Active Problems Problem Noted Date Diagnosed Date Left carpal tunnel syndrome 03/21/2023 Trigger ring finger of left hand 08/07/2022 Osteopenia 05/08/2016 HTN (hypertension) 04/13/2007 Overview (02/09/2024): Had 24 hour abpm-ave 125/67,day time 124/66 and ngiht 127/69.had white coat effect Has orthostatic componant.amlodione hnged to 2.5mg bid dr bolanos 04/02/0704/20-echo normal ef 03/20-Normal myocardial perfusion imaging Left ventricular systolic function normal, with ejection fraction of 65% 06/19- egd nad Abnormal mammogram 08/13/2006 Overview (02/09/2024): 02/13 IMO update Hyperlipidemia 07/10/2006 Overview (02/09/2024): wanted to watch diet 06/14 12/17- statin caused lfts elevation 12/17- us abd fatty liver.no gall stones Backache 06/26/2006 Overview (02/09/2024): dr etienne- [facility] facet arthropathy cpx 04/13/10: Low back - no current problems IMO update Right carpal tunnel syndrome 06/26/2006 Overview (02/09/2024): s/p surgery cpx 04/13/10- no current problems Hypothyroidism 07/26/2005 Encounters Date Type Department Care Team Description 04/15/2024 9:15 AM EST Office Visit [facility] [address] [facility] [place] [address] Hay Noguera MD Primary hypertension (Primary Dx); Pure hypercholesterolemia; Hypothyroidism, unspecified type from Last 3 Months Immunizations Name Administration Dates Next Due COVID-19 Seasonal (Novavax) 12yo and older 07/17 Pneumococcal conjugate 13 va lent (Prevnar 13, PCV13) 2mo and older 04/13/2015 Pneumococcal polysaccharide 23 valent (Pneumovax 23) 2yo and older 05/08/2016 Td Tetanus diptheria (Tdvax) 7yo and older 04/10,12/31/2001 Td, Unspecified 12/31/2001 Tdap Tetanus diptheria acell ular pertussis (Boostrix; Adacel) 7yo and older 05/06/2012 Surgical History Surgery Date Site/Laterality Comments HIP ARTHROPLASTY 06/2009 PROCEDURE: HISTORICAL HIP REPLACEMENT COLONOSCOPY 09/27/2008 PROCEDURE: AR COLONOSCOPY FLX DX W/COLLJ SPEC WHEN PFRMD; COMMENT: Normal CARPAL TUNNEL RELEASE 2002 ? PROCEDURE: AR NEUROPLASTY &/TRANSPOS MEDIAN NRV CARPAL TUNNE HYSTERECTOMY at 26 years old PROCEDURE: HISTORICAL HYSTERECTOMY ESOPHAGOGASTRODUODENOSCOPY 05/03/2010 PROCEDURE: AR ESOPHAGOGASTRODUODENOSCOPY TRANSORAL DIAGNOSTIC; COMMENT: Normal Medical History Medical History Date Comments Unspecified hypothyroidism 07/26/2005 DX:Un specified hypothyroidism Unspecified joint replacemen t by other means 06/26/2009 DX:Unspecified joint replace ment by other means; COMMENT: Right total hip replacement on 06/20/2009 by . Backache, unspecified 06/26/2006 DX:Backach e, unspecified; COMMENT: dr etienne- [facility] facet arthropathy cpx 04/13/10: Low back - no current problems Other and unspecified hyperlipidemia 07/10/2006 DX:Other and unspecified hyperlipidemia; COMMENT: wanted to watch diet 06/14 12/17- statin caused lfts elevation 12/17- us abd fatty liver.no gall stones HTN (hypertension) 04/13/2007 DX:HTN (hyper tension); COMMENT: Had 24 hour abpm-ave 125/67,day time 124/66 and ngiht 127/69.had white coat effect Has orthostatic componant.amlodione hnged to 2.5mg bid dr bolanos 04/02/0704/20-echo normal ef 03/20-Normal myocardial perfusion imaging Left ventricular systolic function normal, with ejection fraction of 65% 06/19- egd nad Carpal tunnel syndrome 06/26/2006 DX:Carpal tunnel syndrome; COMMENT: s/p surgery cpx 04/13/10- no current problems Abnormal mammogram, unspecified 08/13/2006 DX:Abnormal mammogram, unspecified; COMMENT: 02/13 Family History Medical History Relation Name Comments Breast cancer Aunt maternal Heart attack Father 59 Breast cancer Mother Relation Name Status Comments Aunt maternal Father Mother gi cancer Social History Tobacco Use Types Packs/Day Years Used Date Smoking Tobacco: Former Cigarettes Q uit: 03/10/1962 Smokeless Tobacco: Former Tobacco Cessation:Counseling Given: Not Answered Alcohol Use Standard Drinks/Week Comments Yes 0 (1 standard drink = 0.6 oz pur e alcohol) Comments No Sex and Gender Information Value Date Recorded Sex Assigned at Female 02/11/2024 9:53 AM EST Legal Sex Female 2:01 PM EST Gender Identity Female 02/11/2024 9:53 AM EST Sexual Orientation Straight 02/11/2024 9: 53 AM EST Obstetrics History Para Term AB IAB SAB Ectopic Multiple Livin g Live Births 3 Last Filed Vital Signs Vital Sign Reading Time Taken Comments Blood Pressure 140/68 04/15/2024 8:48 AM EST Pulse 86 04/15/2024 8:48 AM EST Temperature - - Respiratory Rate - - Oxygen Saturation - - Inhaled Oxygen Concentration - - Weight 51.2 kg (112 lb 14.4 oz) 04/15/2024 8:48 AM EST Height 149.9 cm (4' 11 ) 04/15/2024 8:48 AM EST Body Mass Index 22.8 04/15/2024 8:48 AM EST Plan of Treatment Health Maintenance Due Date Last Done Comments Zoster Vaccines (1 of 2) 01/14/1994 RSV Immunization Adult Patients (1 - 1-dose 75+ series) 01/14/2019 Social Influencers of Health Screening 02/06/2022 Depression Screening 10/13/2024 10/14/2023 Falls Risk Assessment 10/13/2024 10/14/2023 Medicare Annual Wellness Visit 10/13/2024 10/14/2023 Influenza Vaccine (Season Ended) 2024 Hypertension/CHF/CAD Annual BMP Blood Test 04/15/2025 04/15/2024, 10/14/2023, 10/14/2023 Cholesterol Screening (Lipid Panel) 04/15/2029 04/15/2024, 10/14/2023, 10/14/2023 DTaP,Tdap,and Td Vaccines (5 - Td or Tdap) 04/10/2033 04/10/2023, 05/06/2012, 12/31/2001, Additional history exists Osteoporosis Screening (Bone Density Screening) 10/01/2033 10/02/2023, 10/02/2023, 10/04/2021, Additional history exists Pneumococcal Vaccine: 50+ Years Completed 05/08/2016, 04/13/2015 COVID-19 Vaccine Completed 11/26/2023, 12/2021, 01/24/2021, Additional history exists HIB Vaccines Aged Out No longer eligi ble based on patient's age to complete this topic HPV Vaccines Aged Out No longer eligi ble based on patient's age to complete this topic Hepatitis A Vaccines Aged Out No long er eligible based on patient's age to complete this topic Hepatitis B Vaccines Aged Out No long er eligible based on patient's age to complete this topic IPV Vaccines Aged Out No longer eligi ble based on patient's age to complete this topic MMR Vaccines Aged Out No longer eligi ble based on patient's age to complete this topic Meningococcal ACWY Vaccine Aged Out N o longer eligible based on patient's age to complete this topic Meningococcal B Vaccine Aged Out No l onger eligible based on patient's age to complete this topic RSV Immunization Patients Under 20 months Aged Out No longer eligible based on patient's age to complete this topic Varicella Vaccines Aged Out No longer eligible based on patient's age to complete this topic Procedures Procedure Name Priority Date/Time Associated Diagnosis Comments ALANINE AMINOTRANSFERASE Routine 025 9:44 AM EST Primary hypertension Pure hypercholesterolemi a Hypothyroidism, unspecified type ASPARTATE AMINOTRANSFERASE Routine 04/15/2024 9:44 AM EST Primary hypertension Pure hypercholesterolemi a Hypothyroidism, unspecified type BASIC METABOLIC PANEL Routine 04/15/2024 9:44 AM EST Primary hypertension Pure hypercholesterolemi a Hypothyroidism, unspecified type LIPID PANEL WITH REFLEX TO DIRECT LDL Routine 04/15/2024 9:44 AM EST Primary hypertension Pure hypercholesterolemi a Hypothyroidism, unspecified type DEPRESSION SCREENING Routine 10/14/2023 FALLS RISK ASSESSMENT Routine 10/14/2023 DXA BONE DENSITY STUDY 1+ SITS AXIAL SKEL Routine 10/02/2023 8:54 AM EDT Encounter for screening for osteoporosis from Last 3 Months or Most Recently Relevant to Health Maintenance Results * Lipid panel with reflex to direct LDL (04/15/2024 9:44 AM EST) Cholesterol 154 0 - 200 mg/dL LAB CHEMISTRY METHOD 04/15/2024 12:11 PM [facility] Triglycerides 82 0 - 150 mg/dL LAB CHEMISTRY METHOD 04/15/2024 12:11 PM [facility] HDL 65 >=40 mg/dL LAB CHEMISTRY METHOD 04/15/2024 12:11 PM [facility] LDL Calculated 73 0 - 100 mg/dL LAB CHEMISTRY METHOD 04/15/2024 12:11 PM [facility] VLDL Cholesterol Xu 16.4 mg/dL LAB CHEMISTRY METHOD 04/15/2024 12:11 PM [facility] Non HDL Chol. (LDL+VLDL) 89 <145 mg/dL LAB CHEMISTRY METHOD 04/15/2024 12:11 PM [facility] Chol/HDL Ratio 2.4 0.0 - 4.4 LAB CHEMISTRY METHOD 04/15/2024 12:11 PM [facility] Blood Venous blood specimen / Unknown Venipuncture / Unknown 04/15/2024 9:44 AM EST 04/15/2024 9:44 AM EST us Hay Noguera MD LAB BLOOD ORDERABLES Final Res ult Performing Organization Address [facility] Co de Phone Number [facility] [address] [place] [address], [place] [phone] * Alanine aminotransferase (04/15/2024 9:44 AM EST) ALT (SGPT) 20 10 - 60 unit/L LAB CHEMISTRY METHOD 04/15/2024 12:11 PM EST [facility] Blood Venous blood specimen / Unknown Venipuncture / Unknown 04/15/2024 9:44 AM EST 04/15/2024 9:44 AM EST us Hay Noguera MD LAB BLOOD ORDERABLES Final Res ult Performing Organization Address [facility] Co de Phone Number [facility] [address] [place] [address], [place] [phone] * Aspartate aminotransferase (04/15/2024 9:44 AM EST) [facility] AST (SGOT) 16 10 - 42 unit/L LAB CHEMISTRY METHOD 04/15/2024 12:11 PM EST [facility] Blood Venous blood specimen / Unknown Venipuncture / Unknown 04/15/2024 9:44 AM EST 04/15/2024 9:44 AM EST us Hay Noguera MD LAB BLOOD ORDERABLES Final Res ult Performing Organization Address [facility]/ZIP Co de Phone Number [facility] [address] [place] [address], [place] [phone] * (ABNORMAL) Basic metabolic panel (04/15/2024 9:44 AM EST) Sodium 139 133 - 145 mmol/L LAB CHEMISTRY METHOD 04/15/2024 12:11 PM [facility] Potassium 4.6 3.5 - 5.5 mmol/L LAB CHEMISTRY METHOD 04/15/2024 12:11 PM [facility] Chloride 108 96 - 110 mmol/L LAB CHEMISTRY METHOD 04/15/2024 12:11 PM [facility] CO2 25 21 - 32 mmol/L LAB CHEMISTRY METHOD 04/15/2024 12:11 PM [facility] Anion Gap 6 3 - 11 LAB CHEMISTRY METHOD 04/15/2024 12:11 PM [facility] Glucose 104(H) 70 - 100 mg/dL LAB CHEMISTRY METHOD 04/15/2024 12:11 PM [facility] BUN 16 5 - 25 mg/dL LAB CHEMISTRY METHOD 04/15/2024 12:11 PM [facility] Creatinine 0.59 0.50 - 1.10 mg/dL LAB CHEMISTRY METHOD 04/15/2024 12:11 PM [facility] eGFR 91 >=60 mL/min/1. 73m2 LAB CHEMISTRY METHOD 04/15/2024 12:11 PM [facility] Comment:Calculation based on the??Chronic Kidney Disease Epidemiology Collaboration (CKD-EPI) equation refit??without adjustment for race. BUN/Creatinine Ratio 27.1 LAB CHEMISTRY METHOD 04/15/2024 12:11 PM [facility] Calcium 10.4 8.5 - 10.5 mg/dL LAB CHEMISTRY METHOD 04/15/2024 12:11 PM [facility] Blood Venous blood specimen / Unknown Venipuncture / Unknown 04/15/2024 9:44 AM EST 04/15/2024 9:44 AM EST us Hay Noguera MD LAB BLOOD ORDERABLES Final Res ult [facility] [address] [place] [address], [place] [phone] * Falls Risk Assessment (10/14/2023) Falls Risk Assessment abstracted us Historical Provider MD HEALTH MAINTENANCE Final Result * Depression Screening (10/14/2023) Depression Screening abstracted us Historical Provider HEALTH MAINTENANCE Final Result * DXA BONE DENSITY STUDY 1+ SITS AXIAL SKEL (10/02/2023 8:54 AM EDT) Anatomical Region Laterality Modality Bone Densitometr y 02/04/2023 4:06 PM EST Narrative 10/02/2023 6:08 PM EDT Clinical history: osteoporosis Scans of the lumbar spine and hips were performed on a [employer] fan beam bone densitometer. ? Bone mineral density measurements and associated T and Z scores respectively are as follows: Lumbar Spine: L1-L4, levoscoliosis of the lumbar spine BMD: 0.848 g/cm2 ? T-Score: -1.8 ? Z-Score: 0.8 Compared with the prior study dated 10/04/2021, the BMD reading has increased which is statistically significant Wrist: 03/12 BMD: 0.386 g/cm2 ? T-Score: -5.1 ?? Z-Score: -2.1 Compared with the prior study the mean BMD reading in the wrist has decreased which is statistically significant Compared with standards for the young adult, lowest measured bone density places the patient in the W.H.O. osteoporotic range. IMPRESSION: IMPRESSION: Osteoporosis. The NOF guidelines recommend that FDA approved medical therapies be considered in postmenopausal women and men age >50 years with a: i. Hip or vertebral (clinical or morphometric) fracture ii. T score of < -2.5 at the spine or hip iii. 10 year fracture probability by FRAX of >3% for hip fracture, or >20% for major osteoporotic fracture PLEASE NOTE: ?? W.H.O. classification is based on lowest measured density at the spine, femoral neck, or total hip.This classification has prognostic significance when applied to post menopausal women and older men. 1) ??The World Health Organization defines low BMD as follows: ?T-score ? Normal ? at or > -1 Osteopenia ? < -1 and ??> - 2.5 Osteoporosis ? at or < -2.5 without fractures Established osteoporosis ? < -2.5 with fractures Procedure Note Sabi Bee MD - 12/24/2023 Clinical history: osteoporosis Scans of the lumbar spine and hips were performed on a [employer] beam bone densitometer. Bone mineral density measurements and associated T and Z scoresrespectively are as follows: Lumbar Spine: L1-L4, levoscoliosis of the lumbar spine BMD: 0.848 g/cm2 T-Score: -1.8 Z-Score: 0.8 Compared with the prior study dated 10/04/2021, the BMD reading hasincreased which is statistically significant Wrist: 03/12 BMD: 0.386 g/cm2 T-Score: -5.1 Z-Score: -2.1 Compared with the prior study the mean BMD reading in the wrist hasdecreased which is statistically significant Compared with standards for the young adult, lowest measured bone densityplaces the patient in the W.H.O. osteoporotic range. IMPRESSION: IMPRESSION: Osteoporosis. The NOF guidelines recommend that FDA approved medical therapies beconsidered in postmenopausal women and men age >50 years with a: i. Hip or vertebral (clinical or morphometric) fracture ii. T score of < -2.5 at the spine or hip iii. 10 year fracture probability by FRAX of >3% for hip fracture, or >20%for major osteoporotic fracture PLEASE NOTE: W.H.O. classification is based on lowest measured density at the spine,femoral neck, or total hip.This classification has prognostic significance when applied to postmenopausal women and older men. 1) The World Health Organization defines low BMD as follows: T-score Normal at or > -1 Osteopenia < -1 and > -2.5 Osteoporosis at or < -2.5 withoutfractures Established osteoporosis < -2.5 with fractures Hay Noguera MD IM DXA PROCEDURES Final Resul t from Last 3 Months or Most Recently Relevant to Health Maintenance Insurance MEDICAID - [place] [facility] Advance Directives Documents on File Type Date Recorded Patient Entertainment Usher Expl anation Health Care Decision (hx) 02/02/2019 AD BERRIOS DIRECTIVE Health Care Decision (hx) 02/02/2019 AD BERRIOS DIRECTIVE Health Care Decision (hx) 02/02/2019 AD BERRIOS DIRECTIVE Health Care Decision (hx) 02/02/2019 AD BERRIOS DIRECTIVE Health Care Decision (hx) 02/02/2019 AD BERRIOS DIRECTIVE Health Care Decision (hx) 02/02/2019 AD BERRIOS DIRECTIVE Care Teams Crowd Controller Relationship Specialty Start Date End Date Hay Noguera MD [address] [place] [address] PCP - General Internal Medicine 11/23/14
--- OUTSIDE RECORDS SUMMARY | 2024-06-14 14:27 | XMS_ITS | Clinical Summary ---
Author Organization [facility] Address [address] [place] [address] Care Team Providers Care Boiler House Inspector Name Role Phone Hay Noguera Primary Care Provider [phone] Allergies Active Allergy Reactions Criticality Noted Date Comments Nsaids (Non-Steroidal Anti-I nflammatory Drug) Hives 02/27/2010 Medications acetaminophen (TYLENOL) 325 mg tablet Take 650 mg by mouth 4 times a day. Active amLODIPine (NORVASC) 10 mg tablet 02/05/2021 Active clotrimazole-bet amethasone (LOTRISONE) cream 07/05/2020 Active levothyroxine (SYNTHROID, LEVOTHROID) 75 mcg tablet 02/15/2021 Active lovastatin (MEVACOR) 20 mg tablet 02/11/2021 Active Family History Medical History Relation Name Comments Heart disease Father Cancer Mother No Known Problems Other Relation Name Status Comments Father Mother Other Alive Social History Tobacco Use Types Packs/Day Years [...] 04/03/2021 1:31 PM EST Plan of Treatment Health Maintenance Due Date Last Done Comments Osteoporosis Screening 01/14/1994 Zoster Vaccines (1 of 2) 01/14/1994 RSV Vaccine (60+ years old and patients) (1 - 1-dose 75+ series) 01/14/2019 DTaP,Tdap,and Td Vaccines (2 - Td or Tdap) 05/06/2022 05/06/2012, 12/31/2001 COVID-19 Vaccine (4 - 2023-2 5 season) 2023 01/24/2021, 07/12/2020, 06/21/2020 Alcohol/Substance Use Screening 03/10/2024 Health Care Proxy Review 03/10/2024 Influenza Vaccine (Season Ended) 2024 Pneumococcal Vaccine: 50+ Years Completed 05/08/2016, 04/13/2015 Hepatitis B Vaccines Aged Out No long er eligible based on patient's age to complete this topic Insurance [employer]ETNA [facility] Care Teams Boiler House Inspector Relationship Specialty Start Date End Date Hay Noguera PCP - General Internal Medicine 03/29/21
== END 2024-06-14 12:48 | disposition home or self-care (01) ==
LOC: HO.HOS 12:00
PROVIDERS: PCP Internal Medicine; Visit Provider Orthopaedic Surgery
DX: M75.41 Impingement syndrome of right shoulder (principal); M17.12 Unilateral primary osteoarthritis, left knee
CPT/HCPCS: 20610; 99213

== ENCOUNTER → 2024-06-14 11:59 | Outpatient (BNVA) | payer MEDICARE, MEDICAID, SELFPAY | PROVIDERS: PCP Internal Medicine; Visit Provider Orthopaedic Surgery | DX: M75.41 Impingement syndrome of right shoulder (principal); M17.12 Unilateral primary osteoarthritis, left knee | CPT/HCPCS: 20610; 99212; J0665; J1100; J2003 ==

== ENCOUNTER 2024-09-20 12:38 | Outpatient (AMB) | payer MEDICARE, MEDICAID, SELFPAY ==
--- NOTE | 2024-09-20 12:43 | MHC.OFFVIS ---
Intake Visit Reasons: INJ LT knee and the RT shoulder-last inj 06/14/24 Intake Note: Cristal is an 79 year old female who presents today for an injection for the Left Knee and the Right shoulder. Last injections were administered on 06/14/24. Patient reports that these injections have remained helpful and she would like to repeat injections today. Allergies ibuprofen (From Motrin) Allergy (Intermediate, Verified 09/01/23 12:57) Hives HPI HPI INJ LT knee and the RT shoulder-last inj 06/14/24: Details: Cristal is an 79 year old female who presents today for an injection for the Left Knee and the Right shoulder. Last injections were administered on 06/14/24. Patient reports that these injections have remained helpful and she would like to repeat injections today. [facility] Medical History COVID-19 vaccine series completed Hypothyroid Elevated cholesterol Hypertension Surgical History S/P total knee replacement H/O: hysterectomy Status post total hip replacement, left Status post total hip replacement, right Social History Current occupational status: retired Current occupation: right handed Physical Exam Extrem Other: Left knee medial and lateral joint line mild TTP Right shoulder with + Danielle and Neer but able to abduct comfortably. Office Procedures Joint Inj/Aspir; Non-Pain Clin Joint Injection/Drain Details: Injected 1 mL of Decadron and 3 mL 1% lidocaine and 3 mL of 0.25% Marcaine. Site was prepped using aseptic technique. Patient tolerated the procedure well. Shoulders, Hips, Knees, Shoulder Injection Large joint : Right Shoulder Knee Large Joint Injection 05405: Left Knee Coding Procedure code (CPT) selection complete Assessment & Plan Assessment & Plan (1) Primary osteoarthritis of left knee: Code(s): M17.12 - Unilateral primary osteoarthritis, left knee Category: Medical Plan: I injected her left knee today. This has been helpful and she can follow up as needed. (2) Degenerative arthritis of right shoulder region: Code(s): M19.011 - Primary osteoarthritis, right shoulder Category: Medical Plan: I injected her right subacromial space. She does have shoulder arthritis but she had benefits from periodic subacromial injections. Coding Level of Care Code Est Pt Level 3 (93348) Diagnoses Primary osteoarthritis of left knee M17.12 Degenerative arthritis of right shoulder region M19.011 CPT Codes Shoulders, Hips, Knees, - Shoulder Injection Large joint 54842: Right Shoulder ([id number]) Shoulders, Hips, Knees, - Knee Large Joint Injection 91022: Left Knee ([id number])
--- OUTSIDE RECORDS SUMMARY | 2024-09-20 13:32 | XMS_ITS | Referral Summary ---
Author Organization [facility] Address [address] [place] [address] Care Team Providers Care Refrigerating Technician Name Role Phone Hay Noguera Primary Care Provider [phone] Allergies Active Allergy Reactions Criticality Noted Date [...] of Treatment Not on file Insurance AETNA [facility] Care Teams Refrigerating Technician Relationship Specialty Start Date End Date Hay Noguera PCP - General Internal Medicine 03/29/21
--- OUTSIDE RECORDS SUMMARY | 2024-09-20 13:33 | XMS_ITS | Clinical Summary ---
Author Organization [facility] Address [address] [place] [address] Care Team Providers Care Shipyard Laborer Name Role Phone Unavailable Primary Care Provider Unavailabl e Social History Tobacco Use Types Packs/Day Years Used Date Smoking Tobacco: Never Assessed Comments Unknown Sex and Gender Information Value Date Recorded Sex Assigned at Not on file Legal Sex Female 11:11 AM EST Gender Identity Not on file Sexual [...]
--- OUTSIDE RECORDS SUMMARY | 2024-09-20 13:33 | XMS_ITS | Clinical Summary ---
Author Organization [facility] Address [address] [place] [address] Phone Care Team Providers Care Bowling Alley Manager Name Role Phone Hay Noguera MD Primary Care Provider [phone] Allergies Active Allergy Reactions Criticality Noted Date Comments Ibuprofen 04/07/2023 Naproxen Sodium 04/07/2023 Other Hives 02/27/2010 Motrin Medications acetaminophen (TYLENOL) 325 mg tablet Take 650 mg by mouth every 6 hours as needed. Active alendronate (FOSAMAX) 70 mg tablet TAKE 1 TABLET BY MOUTH EVERY WEEK,X84 DAYS 3 Active clotrimazole-be tamethasone (LOTRISONE) 1-0.05 % cream Apply 1 Application topically 2 (two) times a day. 1 Active cholecalciferol (VITAMIN D-3) 25 mcg (1,000 unit) tablet Take 1 tablet (1,000 Units total) by mouth 1 (one) time each day. 4 Active losartan (Cozaar) 50 mg tablet Take 1 tablet (50 mg total) by mouth 1 (one) time each day. 90 each 1 5 10/13/19 25 Active levothyroxine (SYNTHROID, LEVOTHROID) 75 mcg tablet TAKE 1 TABLET BY MOUTH Friday through Friday, Skip Sundays 78 tablet 1 5 Active lovastatin (MEVACOR) 20 mg tablet Take 1 tablet (20 mg total) by mouth at bedtime. 90 tablet 1 5 Active Active Problems Problem Noted Date Diagnosed Date [...] stones Backache 06/26/2006 Overview (02/09/2024): dr etienne- [place] facet arthropathy cpx 04/13/10: Low back - no current problems IMO update Right carpal tunnel syndrome 06/26/2006 Overview (02/09/2024): s/p surgery cpx 04/13/10- no current problems Hypothyroidism 07/26/2005 Encounters Date Type Department Care Team Description 06/29/2024 Telephone Internal Medicine - [facility] [address] [facility] [place] [address] Hay Noguera MD Referral from Last 3 Months Immunizations Name Administration [...] PROCEDURE: HISTORICAL HIP REPLACEMENT COLONOSCOPY 09/27/2008 PROCEDURE: [place] COLONOSCOPY FLX DX W/COLLJ SPEC WHEN PFRMD; COMMENT: Normal CARPAL TUNNEL RELEASE 2002 ? PROCEDURE: [place] NEUROPLASTY &/TRANSPOS MEDIAN NRV CARPAL TUNNE HYSTERECTOMY at 26 years old PROCEDURE: HISTORICAL HYSTERECTOMY ESOPHAGOGASTRODUODENOSCOPY 05/03/2010 PROCEDURE: [place] ESOPHAGOGASTRODUODENOSCOPY TRANSORAL DIAGNOSTIC; COMMENT: Normal Medical History Medical History Date Comments Unspecified hypothyroidism 07/26/2005 DX:Un specified hypothyroidism Unspecified joint replacemen t by other means 06/26/2009 DX:Unspecified joint replace ment by other means; COMMENT: Right total hip replacement on 06/20/2009 by . Backache, unspecified 06/26/2006 DX:Backach e, unspecified; COM[facility]px 04/13/10: Low back [...] 04/15/2024 8:48 AM EST Plan of Treatment Upcoming Encounters Date Type Department Care Team (Late st Contact Info) Description 09/21/2024 8:45 AM EDT [facility] [address] [place] [address] Rachel Mejia NP [address] [place] [address] 02/10/2025 1:00 PM EST [facility]ointment [facility] [address] [phone] Health Maintenance Due Date Last Done Comments Zoster Vaccines (1 of 2) 01/14/1994 RSV Immunization Adult Patients (1 - 1-dose 75+ series) 01/14/2019 Social Influencers of Health Screening 02/06/2022 COVID-19 Vaccine ( season) 2024 11/26/2023, 07/17/2021, 01/24/2021, Additional history exists Depression Screening 10/13/2024 10/14/2023 Falls Risk Assessment 10/13/2024 10/14/2023 Medicare Annual Wellness Visit 10/13/2024 10/14/2023 Influenza Vaccine (#1) 2024 Hypertension/CHF/CAD Annual BMP Blood Test 04/15/2025 04/15/2024, 10/14/2023, 10/14/2023 Cholesterol Screening (Lipid Panel) 04/15/2029 04/15/2024, 10/14/2023, 10/14/2023 DTaP,Tdap,and Td Vaccines (5 - Td or Tdap) 04/10/2033 04/10/2023, 05/06/2012, 12/31/2001, Additional history exists Osteoporosis Screening (Bone Density Screening) 10/01/2033 10/02/2023, 10/02/2023, 10/04/2021, Additional history exists Pneumococcal Vaccine: 50+ Years Completed 05/08/2016, 04/13/2015 HIB Vaccines Aged Out No longer eligi [...] Procedure Name Priority Date/Time Associated Diagnosis Comments BASIC METABOLIC PANEL Routine 04/15/2024 9:44 AM EST Primary hypertension Pure hypercholesterolemia Hypothyroidism, unspecified type LIPID PANEL WITH REFLEX TO DIRECT LDL Routine 04/15/2024 9:44 AM EST Primary hypertension Pure hypercholesterolemia Hypothyroidism, unspecified type DEPRESSION SCREENING Routine 10/14/2023 [...] mg/dL LAB CHEMISTRY METHOD 04/15/2024 12:11 PM [facility] Triglycerides 82 0 - 150 mg/dL LAB CHEMISTRY METHOD 04/15/2024 12:11 PM [facility] HDL 65 >=40 mg/dL LAB CHEMISTRY METHOD 04/15/2024 12:11 PM EST [facility] LDL Calculated 73 0 - 100 mg/dL LAB CHEMISTRY METHOD 04/15/2024 12:11 PM EST [facility] VLDL Cholesterol Xu 16.4 mg/dL LAB CHEMISTRY METHOD 04/15/2024 12:11 PM [facility] Non HDL Chol. (LDL+VLDL) 89 <145 mg/dL LAB CHEMISTRY METHOD 04/15/2024 12:11 PM EST [facility] Chol/HDL Ratio 2.4 0.0 - 4.4 LAB CHEMISTRY METHOD 04/15/2024 12:11 PM [facility] Blood Venous blood specimen / Unknown Venipuncture / Unknown 04/15/2024 9:44 AM EST 04/15/2024 9:44 AM EST us Hay Noguera MD LAB BLOOD ORDERABLES Final Res ult [facility] [address] [place] [address], [place] [phone] * (ABNORMAL) Basic metabolic panel (04/15/2024 9:44 AM EST) Sodium 139 133 - 145 mmol/L LAB CHEMISTRY METHOD 04/15/2024 12:11 PM [facility] Potassium 4.6 3.5 - 5.5 mmol/L LAB CHEMISTRY METHOD 04/15/2024 12:11 PM [facility] Chloride 108 96 - 110 mmol/L LAB CHEMISTRY METHOD 04/15/2024 12:11 PM [facility] CO2 25 21 - 32 mmol/L LAB CHEMISTRY METHOD 04/15/2024 12:11 PM [facility] Anion Gap 6 3 - 11 LAB CHEMISTRY METHOD 04/15/2024 12:11 PM [facility] Glucose 104(H) 70 - 100 mg/dL LAB CHEMISTRY METHOD 04/15/2024 12:11 PM [facility] BUN 16 5 - 25 mg/dL LAB CHEMISTRY METHOD 04/15/2024 12:11 PM [facility] Creatinine 0.59 0.50 - 1.10 mg/dL LAB CHEMISTRY METHOD 04/15/2024 12:11 PM [facility] eGFR 91 >=60 mL/min/1. 73m2 LAB CHEMISTRY METHOD 04/15/2024 12:11 PM [facility] Comment:Calculation based on the Chronic Kidney Disease Epidemiology Collaboration (CKD-EPI) equation refit without adjustment for race. BUN/Creatinine Ratio 27.1 LAB CHEMISTRY METHOD 04/15/2024 12:11 PM [facility] Calcium 10.4 8.5 - 10.5 mg/dL LAB CHEMISTRY METHOD 04/15/2024 12:11 PM [facility] Blood Venous blood specimen / Unknown Venipuncture / Unknown 04/15/2024 9:44 AM EST 04/15/2024 9:44 AM EST Hay Noguera MD LAB BLOOD ORDERABLES Final Res ult [facility] [address] [place] [address], * Falls Risk Assessment (10/14/2023) Falls Risk Assessment abstracted Historical Provider MD HEALTH MAINTENANCE Final Result * Depression Screening (10/14/2023) Depression Screening abstracted Historical Provider HEALTH MAINTENANCE Final Result * DXA BONE DENSITY STUDY 1+ SITS AXIAL SKEL (10/02/2023 8:54 AM EDT) Anatomical Region Laterality Modality Bone Densitometr y 02/04/2023 4:06 PM EST Narrative 10/02/2023 6:08 PM EDT Clinical history: osteoporosis Scans of the lumbar spine and hips were performed on a [employer] fan beam bone densitometer. Bone mineral density measurements [...] >20% for major osteoporotic fracture PLEASE NOTE: W.H.O. classification is based on lowest measured density at the spine, femoral neck, or total hip.This classification has prognostic significance when applied to post menopausal women and older men. 1) The World Health Organization defines low BMD as follows: T-score Normal at or > -1 Osteopenia < -1 and > -2.5 Osteoporosis at or < -2.5 without fractures Established osteoporosis < -2.5 with fractures Procedure Note Sabi Bee MD - 12/24/2023 Clinical history: osteoporosis Scans of the lumbar spine and hips were performed on a [employer] beam bone densitometer. 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
--- OUTSIDE RECORDS SUMMARY | 2024-09-20 13:33 | XMS_ITS ---
Author Name [facility] Organization Unknown Care Team Organization Name Specialty Phone Email Start Date End [facility]
== END 2024-09-20 13:31 | disposition home or self-care (01) ==
LOC: HO.HOS 12:39
PROVIDERS: PCP Internal Medicine; Visit Provider Orthopaedic Surgery
DX: M17.12 Unilateral primary osteoarthritis, left knee (principal); M19.011 Primary osteoarthritis, right shoulder
CPT/HCPCS: 20610

== ENCOUNTER → 2024-09-20 12:38 | Outpatient (BNVA) | payer MEDICARE, MEDICAID, SELFPAY | PROVIDERS: PCP Internal Medicine; Visit Provider Orthopaedic Surgery | DX: M19.011 Primary osteoarthritis, right shoulder (principal); M17.12 Unilateral primary osteoarthritis, left knee | CPT/HCPCS: 20610; J0665; J1100; J2003 ==

== ENCOUNTER 2024-12-23 09:40 | Outpatient (AMB) | payer MEDICARE, MEDICAID, SELFPAY ==
--- NOTE | 2024-12-23 10:00 | A.OFFVIS_ITS ---
Intake Visit Reasons: INJ LT knee and the RT shoulder-last inj 09/20/24 Intake Note: Cristal is an 79 year old female who presents today for an injection for the Left Knee and the Right shoulder. Last injections were administered on 09/20/2024. Patient reports that the last Left knee injection was very helpful, b ut the riht shoulder injection was not as effective and only provided about 2 weeks of relief. She would like to repeat both injections today. Allergies ibuprofen (From Motrin) Allergy (Intermediate, Verified 12/23/24 10:01) Hives HPI HPI INJ LT knee and the RT shoulder-last inj 09/20/24: Details: Comes in today with complaints of left knee and right shoulder pain. Injections are helpful and would like to continue getting these. [facility] Medical History COVID-19 vaccine series completed Hypothyroid Elevated cholesterol Hypertension Surgical History S/P total knee replacement H/O: hysterectomy Status post total hip replacement, left Status post total hip replacement, right Social History Current occupational status: retired Current occupation: right handed Physical Exam Extrem Other: Left knee medial and lateral joint line mild TTP Right shoulder with + Danielle and Neer but able to abduct comfortably. Office Procedures Joint Inj/Aspir; Non-Pain Clin Joint Injection/Drain Details: Injected 1 mL of Decadron and 3 mL 1% lidocaine and 3 mL of 0.25% Marcaine. Site was prepped using aseptic technique. Patient tolerated the procedure well. Shoulders, Hips, Knees, Shoulder Injection Large joint : Right Shoulder Knee Large Joint Injection 23647: Left Knee Coding Procedure code (CPT) selection complete Assessment & Plan Assessment & Plan (1) Primary osteoarthritis of left knee: Code(s): M17.12 - Unilateral primary osteoarthritis, left knee Category: Medical Plan: Injected left knee. (2) Degenerative arthritis of right shoulder region: Code(s): M19.011 - Primary osteoarthritis, right shoulder Category: Medical Plan: Injected right subacromial space. The seems to benefit her even though her diagnosis is arthritis of the glenohumeral joint. Coding Level of Care Code Est Pt Level 3 (88810) Diagnoses Primary osteoarthritis of left knee M17.12 Degenerative arthritis of right shoulder region M19.011 CPT Codes Shoulders, Hips, Knees, - Shoulder Injection Large joint 75469: Right Shoulder ([id number]) Shoulders, Hips, Knees, - Knee Large Joint Injection 79218: Left Knee ([id number])
--- OUTSIDE RECORDS SUMMARY | 2024-12-23 11:10 | XMS_ITS | Encounter Summary ---
Author Organization [facility] Address [address] [place] [address] Care Team Providers Care Portfolio Director Name Role Phone Hay Noguera MD Primary Care Provider [phone] Reason for Visit * Reason Onset Date Comments BP Log 12/21/2024 Encounter Details Date Type Department Care Team (Late st Contact Info) Description 12/21/2024 Telephone Internal Medicine - [address] [phone] Hay Noguera MD [address] [place] [phone] Social History Tobacco Use Types Packs/Day Years Used Date Smoking Tobacco: Former Cigarettes Q uit: [birth year]10/1963 Smokeless Tobacco: Former Alcohol Use Standard Drinks/Week Comments Yes 0 (1 standard drink = 0.6 oz pur e alcohol) Comments No Sex and Gender Information Value Date Recorded Sex Assigned at Female 02/11/2024 9:53 AM EST Legal Sex Female 2:01 PM EST Gender Identity Female 02/11/2024 9:53 AM EST Sexual Orientation Straight 02/11/2024 9: 53 AM EST documented as of this encounter Progress Notes * Martha Tinsley MA - 12/22/2024 9:14 AM EDT Lmom for callback Adult Med A [id number] * Rachel Mejia NP - 12/21/2024 4:54 PM EDT Please notify the patient that I reviewed her BP log that she dropped off, her blood pressure has been very well-controlled, in fact low at times. She did mention in her note that she was going to stop her nifedipine. I think this is fine as long as she continues to closely monitor the blood pressure and if her numbers start to increase especially consistently greater than 140/90 she should either call the office or resume the medication. She should definitely continue her losartan. * Elisa Pantoja - 12/21/2024 11:38 AM EDT Pt dropped off BP log for Rachel Mejia. Placed in bin. documented in this encounter Plan of Treatment Upcoming Encounters Date Type Department Care Team (Late st Contact Info) Description 02/10/2025 1:00 PM EST [facility]ointment [facility] [address] [phone] 02/22/2025 8:15 AM EST [facility] [address] [place] [phone] Hay Noguera MD [address] [place] [phone] documented as of this encounter Visit Diagnoses Not on filedocumented in this encounter Care Teams Portfolio Director Relationship Specialty Start Date End Date Hay Noguera MD [address] [place] [phone] PCP - General Internal Medicine 11/23/14 documented as of this encounter
--- OUTSIDE RECORDS SUMMARY | 2024-12-23 11:10 | XMS_ITS | Clinical Summary ---
Author Organization [facility] Address [address] [place] [address] Care Team Providers Care Maintenance Services Dispatcher Name Role Phone Hay Noguera Primary Care Provider [phone] Allergies Active Allergy Reactions Criticality Noted Date [...] - Td or Tdap) 05/06/2022 05/06/2012, 12/31/2001 Alcohol/Substance Use Screening 03/10/2024 Health Care Proxy Review 03/10/2024 COVID-19 Vaccine (4 - 2024-2 6 season) 2024 01/24/2021, 07/12/2020, 06/21/2020 Influenza Vaccine (#1) 2024 Pneumococcal Vaccine: 50+ Years Completed 05/08/2016, 04/13/2015 Hepatitis B Vaccines Aged Out No long er eligible based on patient's age to complete this topic Insurance [employer] [facility] Care Teams Maintenance Services Dispatcher Relationship Specialty Start Date End Date Hay Noguera PCP - General Internal Medicine 03/29/21
--- OUTSIDE RECORDS SUMMARY | 2024-12-23 11:10 | XMS_ITS | Clinical Summary ---
Author Organization [facility] Address [address] [place] [address] Care Team Providers Care Residential Care Officer Name Role Phone Unavailable Primary Care Provider Unavailabl e Social History Tobacco Use Types Packs/Day Years Used Date Smoking Tobacco: Never Assessed Comments Unknown Sex and Gender Information Value Date Recorded Sex Assigned at Not on file Legal Sex Female 11:11 AM EST Gender Identity Not on file Sexual Orientation Not on file Plan of Treatment Health Maintenance Due Date Last Done Comments Advance Care Planning 1945 DTaP/Tdap/Td Vaccines (1 - Tdap) 01/14/1963 Pneumococcal Vaccines 50+ (1 of 1 - PCV) 01/14/1994 Zoster (Shingles) Vaccine (1 of 2) 01/14/1994 RSV Vaccine 50 years and old er and Patients (1 - 1-dose 75+ series) 01/14/2019 COVID-19 Vaccine (2023-2 5 season) 2024 Hepatitis B Vaccines Aged Out No long er eligible based on patient's age to complete this topic
--- OUTSIDE RECORDS SUMMARY | 2024-12-23 11:10 | XMS_ITS | Clinical Summary ---
Author Organization [facility] Address [address] [place] [address] Phone Care Team Providers Care Shank Turner Name Role Phone Hay Noguera MD Primary Care Provider [phone] Allergies Active Allergy Reactions Criticality Noted Date [...] 1 (one) time each day. 4 Active albuterol HFA (PROAIR HFA ; PROVENTIL HFA ; VENTOLIN HFA) 90 mcg/actuation inhaler Inhale 2 puffs by mouth if needed for shortness of breath. 6.7 g 11 5 Active lovastatin (MEVACOR) 20 mg tablet Take 1 tablet (20 mg total) by mouth at bedtime. 90 tablet 1 5 Active levothyroxine (SYNTHROID, LEVOTHROID) 75 mcg tablet TAKE 1 TABLET BY MOUTH Friday through Friday, Skip Sundays 78 tablet 1 5 Active NIFEdipine (ADALAT CC) 30 mg 24 hr tablet Take 1 tablet (30 mg total) by mouth 1 (one) time each day. Do not crush, chew, or split. 30 tablet 2 5 05/01/19 Active losartan (Cozaar) 100 mg tablet Take 1 tablet (100 mg total) by mouth 1 (one) time each day. 90 each 1 5 05/01/19 Active Active Problems Problem Noted Date Diagnosed Date Primary hyperparathyroidism (CMS/HCC V24) 2024 Age-related osteoporosis wit hout current pathological fracture 11/02/2024 Overview (11/02/2024): DEXA 09/2023- on alendronate now Left carpal tunnel syndrome 03/21/2023 Trigger ring finger of left hand 08/07/2022 Primary hypertension 04/13/2007 Overview (02/09/2024): Had 24 hour abpm-ave 125/67,day time 124/66 and ngiht 127/69.had white coat effect Has orthostatic componant.amlodione hnged to 2.5mg bid dr bolanos 04/02/0704/20-echo normal ef 03/20-Normal myocardial perfusion imaging Left ventricular systolic function normal, with ejection fraction of 65% 06/19- egd nad Abnormal mammogram 08/13/2006 Overview (02/09/2024): 02/13 IMO update Elevated lipoprotein(a) 07/10/2006 Overview (02/09/2024): wanted to watch diet 06/14 12/17- statin caused lfts elevation 12/17- us abd fatty liver.no gall stones Backache 06/26/2006 Overview (02/09/2024): dr etienne- [facility] facet arthropathy cpx 04/13/10: Low back - no current problems IMO update Right carpal tunnel syndrome 06/26/2006 Overview (02/09/2024): s/p surgery cpx 04/13/10- no current problems 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 07/08 Encounters Date Type Department Care Team Description 12/21/2024 Telephone Internal Medicine - [address] [phone] Hay Noguera MD 11/23/2024 2:30 PM EDT Office Visit Internal Medicine - [address] [phone] Rachel Mejia NP Primary hypertension (Primary Dx); 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 11/02/2024 8:45 AM EDT Office Visit Internal Medicine - [address] [phone] Rachel Mejia NP Primary hypertension (Primary Dx); Age-related osteoporosis without current pathological fracture; Primary hyperparathyroidism ([facility] V24); 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 PROCEDURE: [place] NEUROPLASTY &/TRANSPOS MEDIAN NRV CARPAL TUNNE HYSTERECTOMY at 26 years old PROCEDURE: HISTORICAL HYSTERECTOMY ESOPHAGOGASTRODUODENOSCOPY 05/03/2010 PROCEDURE: [place] ESOPHAGOGASTRODUODENOSCOPY TRANSORAL DIAGNOSTIC; COMMENT: Normal Medical History Medical History Date Comments Unspecified hypothyroidism 07/26/2005 DX:Un specified hypothyroidism Unspecified joint replacemen t by other means 06/26/2009 DX:Unspecified joint replace ment by other means; COMMENT: Right total hip replacement on 06/20/2009 by . Backache, unspecified 06/26/2006 DX:[facility]ach e, unspecified; [facility] 04/13/10: Low back [...] unspecified 08/13/2006 DX:Abnormal mammogram, unspecified; COMMENT: 02/13 Primary hyperparathyroidism (CMS/HCC V24) 11/02/2024 s/p exploratory parathyroidi ectomy 07/06/2024- hypercellular tissue Family History Medical History Relation Name Comments [...] Sign Reading Time Taken Comments Blood Pressure 110/59 11/23/2024 2:30 PM EDT A Pulse 88 11/23/2024 2:30 PM EDT Temperature - - Respiratory Rate - - Oxygen Saturation - - Inhaled Oxygen Concentration - - Weight 48.9 kg (107 lb 12.8 oz) 11/23/2024 2:30 PM EDT Height 149.9 cm (4' 11 ) 11/23/2024 2:30 PM EDT Body Mass Index 21.77 11/23/2024 2:30 PM EDT Plan of Treatment Upcoming Encounters Date Type Department Care Team (Late st Contact Info) Description 02/10/2025 1:00 PM EST [facility]ointment [facility] at [address] [phone] 02/22/2025 8:15 AM EST Office Visit Internal Medicine - [address] [phone] Hay Noguera MD [address] [place] [phone] Health Maintenance Due Date Last Done Comments Zoster Vaccines (1 of 2) 01/14/1994 RSV Immunization Adult Patients (1 - 1-dose 75+ series) 01/14/2019 Social Influencers of Health Screening 02/06/2022 Depression Screening 03/10/2024 10/14/2023 Falls Risk Assessment 10/13/2024 10/14/2023 Medicare Annual Wellness Visit 10/13/2024 10/14/2023 COVID-19 Vaccine ( season) 2024 11/26/2023, 07/17/2021, 01/24/2021, Additional history exists Influenza Vaccine (#1) 2024 Hypertension/CHF/CAD Annual BMP Blood Test 09/22/2025 09/22/2024, 04/15/2024, 10/14/2023, Additional history exists Cholesterol Screening (Lipid Panel) 09/22/2029 09/22/2024, 04/15/2024, 10/14/2023, Additional history exists DTaP,Tdap,and Td Vaccines (5 - Td or [...] Associated Diagnosis Comments ALANINE AMINOTRANSFERASE Routine 025 8:36 AM EDT Elevated lipoprotein(a) ASPARTATE AMINOTRANSFERASE Routine 09/22/2024 8:36 AM EDT Elevated lipoprotein(a) BASIC METABOLIC PANEL Routine 09/22/2024 8:36 AM EDT Primary hypertension LIPID PANEL WITH REFLEX TO DIRECT LDL Routine 09/22/2024 8:36 AM EDT Elevated lipoprotein(a) DEPRESSION SCREENING Routine 10/14/2023 FALLS RISK ASSESSMENT Routine 10/14/2023 DXA BONE DENSITY STUDY 1+ SITS AXIAL SKEL Routine 10/02/2023 8:54 AM EDT Encounter for screening for osteoporosis from Last 3 Months or Most Recently Relevant to Health Maintenance Results * Lipid panel with reflex to direct LDL (09/22/2024 8:36 AM EDT) Cholesterol 155 0 - 200 mg/dL LAB CHEMISTRY METHOD 09/22/2024 3:[address] [facility] Triglycerides 113 0 - 150 mg/dL LAB CHEMISTRY METHOD 09/22/2024 3:[address] [facility] HDL 59 >=40 mg/dL LAB CHEMISTRY METHOD 09/22/2024 3:[address] [facility] LDL Calculated 73 0 - 100 mg/dL LAB CHEMISTRY METHOD 09/22/2024 3:[address] [facility] VLDL Cholesterol Xu 22.6 mg/dL LAB CHEMISTRY METHOD 09/22/2024 3:[address] [facility] Non HDL Chol. (LDL+VLDL) 96 <145 mg/dL LAB CHEMISTRY METHOD 09/22/2024 3:[address] [facility] Chol/HDL Ratio 2.6 0.0 - 4.4 LAB CHEMISTRY METHOD 09/22/2024 3:[address] [facility] Blood Venous blood specimen / Unknown Venipuncture / Unknown 09/22/2024 8:36 AM EDT 09/22/2024 8:36 AM EDT us Rachel Rboerto LAB BLOOD ORDERABLES Final Resu lt Performing Organization Address [facility] Co de Phone Number [facility] [address] [place] [address], [place] [phone] * Alanine aminotransferase (09/22/2024 8:36 AM EDT) ALT (SGPT) 25 10 - 60 unit/L LAB CHEMISTRY METHOD 09/22/2024 3:[address] [facility] Blood Venous blood specimen / Unknown Venipuncture / Unknown 09/22/2024 8:36 AM EDT 09/22/2024 8:36 AM EDT Rachel Mejia LAB BLOOD ORDERABLES Final Resu lt Performing Organization Address [facility] de Phone Number [facility] [address] [place] [address], * Aspartate aminotransferase (09/22/2024 8:36 AM EDT) AST (SGOT) 23 10 - 42 unit/L LAB CHEMISTRY METHOD 09/22/2024 3:[address] [facility] Blood Venous blood specimen / Unknown Venipuncture / Unknown 09/22/2024 8:36 AM EDT 09/22/2024 8:36 AM EDT Rachel Mejia LAB BLOOD ORDERABLES Final Resu lt Performing Organization Address City/[facility]/ZIP Co de Phone Number [facility] [address] [place] [address], [place] [phone] * Basic metabolic panel (09/22/2024 8:36 AM EDT) Sodium 142 133 - 145 mmol/L LAB CHEMISTRY METHOD 09/22/2024 3:[address] [facility] Potassium 4.2 3.5 - 5.5 mmol/L LAB CHEMISTRY METHOD 09/22/2024 3:[address] [facility] Chloride 108 96 - 110 mmol/L LAB CHEMISTRY METHOD 09/22/2024 3:59 PM [facility] CO2 27 21 - 32 mmol/L LAB CHEMISTRY METHOD 09/22/2024 3:59 PM [facility] Anion Gap 7 3 - 11 LAB CHEMISTRY METHOD 09/22/2024 3:[address] [facility] Glucose 87 70 - 100 mg/dL LAB CHEMISTRY METHOD 09/22/2024 3:59 PM [facility] BUN 17 5 - 25 mg/dL LAB CHEMISTRY METHOD 09/22/2024 3:59 PM [facility] Creatinine 0.80 0.50 - 1.10 mg/dL LAB CHEMISTRY METHOD 09/22/2024 3:59 PM [facility] eGFR 75 >=60 mL/min/1. 73m2 LAB CHEMISTRY METHOD 09/22/2024 3:[address] [facility] Comment:Calculation based on the Chronic Kidney Disease Epidemiology Collaboration (CKD-EPI) equation refit without adjustment for race. BUN/Creatinine Ratio 21.3 LAB CHEMISTRY METHOD 09/22/2024 3:59 PM [facility] Calcium 8.6 8.5 - 10.5 mg/dL LAB CHEMISTRY METHOD 09/22/2024 3:[address] [facility] Blood Venous blood specimen / Unknown Venipuncture / Unknown 09/22/2024 8:36 AM EDT 09/22/2024 8:36 AM EDT us Rachel Mejia NP LAB BLOOD ORDERABLES Final Resu lt [facility] [address] [place] [address], * Falls Risk Assessment (10/14/2023) Falls Risk Assessment abstracted us Historical Provider HEALTH MAINTENANCE Final Result * Depression Screening (10/14/2023) HM Depression Screening abstracted us Historical Provider HEALTH MAINTENANCE Final Result * DXA BONE DENSITY STUDY 1+ SITS AXIAL SKEL (10/02/2023 8:54 AM EDT) Anatomical Region Laterality Modality Bone Densitometr y 02/04/2023 4:06 PM EST Narrative 10/02/2023 6:08 PM EDT Clinical history: osteoporosis Scans of the lumbar spine and hips were performed on a [employer] fan beam bone densitometer. Bone mineral density [...] spine and hips were performed on a [employer] beam bone densitometer. Bone mineral density measurements [...] < -2.5 with fractures Hay Noguera MD [facility] [place] PROCEDURES Final Resul t from Last 3 Months or Most Recently Relevant to Health Maintenance Insurance MEDICAID - [place] [facility] [employer] Advance Directives Documents on File Type Date Recorded Patient Computer Operations Supervisor Expl anation Health Care Decision (hx) 02/02/2019 AD BERRIOS DIRECTIVE Health Care Decision (hx) 02/02/2019 AD BERRIOS DIRECTIVE Health Care Decision (hx) 02/02/2019 AD BERRIOS DIRECTIVE Health Care Decision (hx) 02/02/2019 AD BERRIOS DIRECTIVE Health Care Decision (hx) 02/02/2019 AD BERRIOS DIRECTIVE Health Care Decision (hx) 02/02/2019 AD BERRIOS DIRECTIVE Care Teams Shank Turner Relationship Specialty Start Date End Date Hay Noguera MD [address] [place] [phone] PCP - General Internal Medicine 11/23/14
== END 2024-12-23 10:10 | disposition home or self-care (01) ==
LOC: HO.HOS 09:40
PROVIDERS: PCP Internal Medicine; Visit Provider Orthopaedic Surgery
DX: M17.12 Unilateral primary osteoarthritis, left knee (principal); M19.011 Primary osteoarthritis, right shoulder
CPT/HCPCS: 20610

== ENCOUNTER → 2024-12-23 09:40 | Outpatient (BNVA) | payer MEDICARE, MEDICAID, SELFPAY | PROVIDERS: PCP Internal Medicine; Visit Provider Orthopaedic Surgery | DX: M17.12 Unilateral primary osteoarthritis, left knee (principal); M19.011 Primary osteoarthritis, right shoulder | CPT/HCPCS: 20610; J0665; J1100; J2003 ==